=== PATIENT | male | born 1995 | race Caucasian/White ===

== ENCOUNTER 2025-01-07 09:42 | Inpatient (IN) | payer OTHER, SELFPAY ==
[2025-01-04 20:46] VITALS: BP 165/111
[2025-01-04 21:00] VITALS: BP 143/93
[2025-01-04 21:08] LABS: Hematocrit 38.8 % (39.0-52.0); Hemoglobin 13.6 g/dL (13.0-18.0); Mean Corp Hgb Conc. 35.1 g/dL (33.0-37.0); Mean Corpuscular Volume 86.4 fL (80.0-94.0); Platelet Count 149 10^3/uL (130-400); Red Cell Dist. Width 13.4 % (11.5-14.5)
[2025-01-04 21:26] LABS: Nucleated Red Blood Cells % 0 % (-)
[2025-01-04 21:31] LABS: ALT (SGPT) 316 U/L (0-50); AST (SGOT) 398 U/L (17-59); Albumin 4.9 g/dl (3.5-5.0); Alkaline Phosphatase 82 U/L (38-126); Blood Urea Nitrogen 7 mg/dl (9-20); Calcium 8.3 mg/dl (8.4-10.2); Carbon Dioxide 28 mmol/L (22-30); Chloride 96 mmol/L (98-107); Glucose 103 mg/dl (70-99); Lipase 434 U/L (23-300); Potassium 3.7 mmol/L (3.5-5.1); Sodium 141 mmol/L (135-145); Total Protein 7.7 g/dl (6.3-8.2); eGFR > 60.00
[2025-01-04 22:00] VITALS: BP 129/86
[2025-01-04] MEDS: THERAGRAN 1 TABLET PO (22:11)
[2025-01-04] MEDS: VITAMIN B1 100 MG PO (22:12)
--- NOTE | 2025-01-04 23:04 | ED.GENMED ---
History of Present Illness
General
Chief Complaint: Alcohol Problem
Source: patient and family
Exam Limitations: none
Time Seen by Provider: 01/04/25 20:54
Nursing documentation reviewed up to this point in time: agreed with
History of Present Illness
History of Present Illness:
29-year-old male daily drinker for over a decade presenting to the emergency department via EMS after his mother called EMS with concerns that he was severely intoxicated and unresponsive. According to EMS he was responsive at time of their arrival
he was cooperative. He did seem somewhat inebriated by description of EMS. He does admit to drinking 1/5 of whiskey daily and claims that he has been drinking slightly more over the past few days up to 2/day. He is not seeking any treatment at
this time no plans of harming himself or others.
Review of Systems
Review of Systems
Allergies reviewed?: Yes
All Other Systems: ROS reviewed and negative except as documented in HPI and ROS
Phy Exam
Physical Exam
Physical Exam:
GENERAL: Alert , in no apparent distress
EYE: pupils equal and reactive
NECK: Supple, no significant adenopathy.
ENT: o/p clr, mmm.
CARDIAC: Regular rate and rhythm .
LUNGS: Clear breath sounds bilaterally, no acute respiratory distress, no wheezes/rales/rhonchi
ABDOMEN: Soft, without focal tenderness, no r/g, no cvat
NEUROLOGICAL: Alert and oriented, no focal neuro deficits
SKIN: Warm and dry, skin intact.
MUSCULOSKELETAL: No edema, well perfused.
PSYCH: Normal and appropriate interaction.
Scores
Withdrawal Assessment of Alcohol
Withdrawal Assessment Completed?: No
Course
Orders/Labs/Results
Orders:
Orders
01/04/25 20:52
Alcohol Urgent
Complete Blood Count/With Diff Urgent
Comprehensive Metabolic Panel Urgent
Lipase Urgent
01/04/25 21:25
Multivitamin [Theragran] 1 tablet PO NOW STA
Thiamine HCl [Vitamin B1] 100 mg PO NOW STA
01/04/25 21:56
CT Head W/o Iv Contrast Urgent
Comment:
Reason For Exam: ams alcoholic
Urinalysis Reflex To Culture Urgent
Date Specimen was Collected: 01/05/25
Time Specimen was Collected: 01:15
01/05/25 00:15
0.9% Sodium Chloride 1000 ml [Nss] 1,000 ml IV BOLUS
Ondansetron Injectable [Zofran] 4 mg IV NOW STA
01/05/25 00:35
Chest [CR Chest - 2 Views ] Urgent
Comment:
Reason For Exam: low pulse ox
01/05/25 01:18
Urine Microscopic Reflex Cult Urgent
01/05/25 02:26
Lorazepam [Ativan] 1 mg PO NOW STA
01/05/25 03:36
Admit/Transfer Patient As Directed
Co-Sign Provider:
Level of Care: Observation services
Assign to:: Medical/Surgical
Physician / Group: Dalia
Diagnosis: alcohol withdrawal
PRN Pain Medication Management As Directed
May give lesser potent ordered pain med per pt: Yes
preference::
Protocol:: Medication orders for pain may be administered in a
manner that supports deferring to patient preference
when the pt is:
- Requesting an ordered lesser potent pain medication.
Least to most potent pain medications are defined
as: acetaminophen < NSAID < tramadol < opioids
(morphine, oxycodone, hydromorphone).
- Requesting a lesser dose of the same medication IF
ORDERED.
- Requesting a less intrusive route of administration
if both routes are prescribed by the provider (PO <
IV).
01/05/25 Breakfast
Regular
At Your Request: Full Participation
01/05/25 07:51
0.9% Sodium Chloride [Nss (Preservative Free)] See Protocol IV PRN PRN
FOLic ACID [Folvite] 1 mg 0.9% Sodium Chloride 50 ml [Nss] 50 ml IV DAILYPRN
Lorazepam [Ativan] 1 mg PO Q2HPRN PRN
Ondansetron Injectable [Zofran] 4 mg IV Q6HPRN PRN
01/05/25 07:51
DIETARY IP CONSULT Routine
Reason for Consult: Nutrition support, possible refeeding guidelines
MSAS SCORE As Directed
MSAS Score 0-4: Repeat MSAS every 2 hours until 0-4 for three consecutive assessments, then every 4 hours x 48
hours.
MSAS Score 5-7: For MILD withdrawl symptoms. Repeat MSAS and RASS every 2 hours
MSAS Score 8-11: For MODERATE withdrawal symptoms. Repeat MSAS and RASS every 1 hour. Consider ICU or IMU
level of care.
MSAS Score > 11: For SEVERE withdrawal symptoms. Repeat MSAS and RASS every 1 hour. Notify provider, consider
ICU level of care.
MSAS Additional Instructions: If no improvement or no decrease in score from severe to moderate within 12
hours, consult psychiatry
MSAS Notify Provider: Notify provider if patient requires more than 10 mg of Lorazepam in eight hour period.
Sequential Compression Device [Pneumatic Compression Sleeves] As Directed
Type: Knee high
DX Deep Vein Thrombosis Video Routine
01/05/25 08:00
FOLic ACID [Folvite] 1 mg PO DAILY
Thiamine Injection 200 mg IV Q8
01/05/25 08:27
Lorazepam [Ativan] 1 mg PO Q1HPRN PRN
01/05/25 08:28
Lorazepam [Ativan] 2 mg PO Q1HPRN PRN
01/05/25 12:54
Urinalysis Routine
Date Specimen was Collected: 01/05/25
Time Specimen was Collected: 12:48
Urine Drug Abuse Screen Routine
Date Specimen was Collected: 01/05/25
Time Specimen was Collected: 12:48
01/05/25 16:00
Phenobarbital Sodium [Phenobarbital] 97.5 mg IV TID
01/06/25 06:00
Magnesium IN AM
Phosphorus IN AM
Vitamin B12 IN AM
01/07/25 16:00
Phenobarbital [Luminal] 64.8 mg PO TID
01/08/25 08:00
Thiamine HCl [Vitamin B1] 100 mg PO BID
01/09/25 16:00
Phenobarbital [Luminal] 32.4 mg PO TID
Abnormal Lab Results
01/04/25 01/05/25
20:52 01:18
WBC 4.0 L 10^3/uL
(4.8-10.8)
RBC 4.49 L 10^6/uL
(4.70-6.10)
Hct 38.8 L %
(39.0-52.0)
Absolute Neuts (auto) 0.9 L* 10^3/uL
(1.4-6.5)
Immature Gran % 0.8 H %
(0-0.5)
Neutrophils % 21.4 L %
(42.2-75.2)
Lymphocytes % 65.4 H %
(20.5-51.1)
Monocytes % 10.4 H %
(1.7-9.3)
Chloride 96 L mmol/L
(98-107)
BUN 7 L mg/dl
(9-20)
Creatinine 0.6 L mg/dL
(0.7-1.3)
Glucose 103 H mg/dl
(70-99)
Calcium 8.3 L mg/dl
(8.4-10.2)
AST 398 H U/L
(17-59)
ALT 316 H U/L
(0-50)
Lipase 434 H U/L
(23-300)
Urine Ketones 1+ A
(Negative)
Urine Bacteria (Reflex) Few A
(Negative)
Urine Albumin (Reflex) 3+ A
(Neg - Trace)
Alcohol, Quantitative > 600 H* mg/dl
01/04/25 20:52
01/04/25 20:52
Vital Signs
Initial and Last Documented VS:
Initial Vital Signs
Temp
98.2 F
01/04/25 20:41
Last Documented Vital Signs
Temp Pulse Resp BP Pulse Ox
98.1 F 104 16 120/87 96
01/05/25 15:46 01/05/25 15:46 01/05/25 15:46 01/05/25 15:46 01/05/25 15:46
MDM/Problems Addressed
MDM/Problems Addressed:
29-year-old male presenting to the emergency department today. Patient admits to drinking at least 1/5 of whiskey daily. Has been drinking for over a decade. Has had DTs in the past denies any seizures in the past. He is not seeking any
treatment at this point denies any thoughts of harming himself specifically. On arrival hypertensive and tachycardic was given fluids Zofran with improvement of blood pressure and heart rate improving to the 90s. Patient not in any significant
withdrawal during ER stay. Liver function test were elevated and was specifically discussed with the patient.
0245: Patient was reassessed at this point he he is seeking inpatient detox. He claims that he has had no success with outpatient treatments at this point. He claims that symptoms were too severe as outpatient in the past. He feels it is unsafe
to attempt outpatient detox at this point plan to admit for monitoring.
*Pulse Oximetry
SaO2: 97
Patient hypoxic: no (96)
*Critical Care Note
Total Time (30-74mins, 75-104mins- exclusive of procedures): Not Applicable
ED Attending Note
-
Portions of this chart may have been created with voice recognition software.� Occasional wrong word or��sound alike� substitutions may have occurred due to the inherent limitations of voice recognition software.
Discharge Plan
Departure
Patient Disposition: Admit
Date of Disposition: 01/05/25
Time of Disposition: 02:55
Admit to: Telemetry
Admit to doctor: Dalia
Presentation/result/management discussed w/ accepting MD/DO: Hospitalist
Patient with high blood pressure during this ER visit?: No
Condition: Good
Covid-19: Not Applicable
Discharge Problem:
Alcohol abuse
Interventions
Interventions:
*Risk Screen - Suicide Last Done: 01/04/25 23:28
*General Assessment Last Done: 01/05/25 01:00
*ED COVID-19 Vaccine History Last Done: 01/05/25 09:07
ED- Neurological Assessment Last Done: 01/04/25 21:00
ED-Psychological Assessment Last Done: 01/04/25 21:00
Discharge Date and Time
Discharge Date/Time: 01/05/25 07:25
[2025-01-04 23:14] VITALS: BP 138/95
[2025-01-04 23:30] VITALS: BP 131/84
[2025-01-05] VITALS (19 sets, daily range): BP systolic 103–140; BP diastolic 56–98; BMI 26.5
[2025-01-05] MEDS: NSS 1000 IV (00:20)
[2025-01-05] MEDS: ZOFRAN 4 MG IV ×2 (00:20→08:47)
[2025-01-05 01:25] LABS: Urine Character Clear (Clear)
[2025-01-05 01:38] LABS: Urine Red Blood Cell None Seen /HPF (0-2)
[2025-01-05 01:39] LABS: Urine White Cell 0-2 /HPF (0-5)
[2025-01-05] MEDS: ATIVAN 1 MG PO ×4 (02:33→20:06)
--- NOTE | 2025-01-05 03:07 | HPS.HSE ---
Family Physician
-
Family Physician: * NONE
Chief Complaint
-
Alcohol dependence
History of Present Illness
This is a 29-year-old male with past medical history of alcohol dependence who presents to the emergency department after being found intoxicated by neighbors and brought into the emergency department by EMS. Intermittent department patient was
initially alert and oriented but somewhat somnolent appeared to be in alcoholic stupor. However when he arose fully he endorsed interest in inpatient rehab. He has tried outpatient rehab before and failed. At the time that he was being evaluated
in the ED started having symptoms of withdrawal most notably some tachycardia and visible tremors.
Reports drinking about 250ml of liquor on daily basis. History of withdrawal episodes on multiple occasions but no history of seizures or DT requiring intubation. He has not undergone any inpatient rehab and tells me he is not really interested.
Last drink was between 12 noon and 6 pm yesterday.
In the emergency department initial vital signs were stable, afebrile, pulse 108 blood pressure 110/60. CBC shows mild neutropenia with normal WBCs. Electrolytes were all normal, BUN/creatinine were normal. He does have some elevation in AST to
the 300s and ALT to 300. Lipase was 420.
Chest x-ray was clear. CT of the head showed no acute intracranial process.
Medical History
Past Medical History
Past Medical History: Reports Other (substance use)
Past Surgical History: Reports Tonsilectomy
Social History
Tobacco: Smoker
Alcohol: Daily
Drug: None
Personal: Single
Living: With Family
Family History
Family History: Not pertinent
Allergies / Home Medications
Allergies reflects when Allergies were last updated in [employer]
Home Medications with original date entered in [employer]
Allergy/Medication List:
Allergies
Allergy/AdvReac Type Severity Reaction Status Date / Time
No Known Allergies Allergy Unverified 01/04/25 21:40
Takes no home medications
Review of Systems
-
Constitutional: Reports No Symptoms
EENT: Reports No Symptoms
Respiratory: Reports No Symptoms
Cardiac: Reports No Symptoms
Abdomen/GI: Reports No Symptoms
: Reports No Symptoms
Musculoskeletal: Reports No Symptoms
Skin: Reports No Symptoms
Neurological: Reports No Symptoms
Endocrine: Reports No Symptoms
Hematologic/Lymphatic: Reports No Symptoms
Psych: Reports No Symptoms
Physical Exam
Vital Signs
Vital Signs
Temp Pulse Resp BP Pulse Ox
98.2 F 108 12 110/60 98
01/04/25 20:41 01/05/25 02:15 01/05/25 02:15 01/05/25 02:00 01/05/25 02:15
Physical Exam
General: Well Developed, Well Nourished and No Apparent Distress
HEENT: NormoCephalic, Moist mucous membranes and Atraumatic
Respiratory: Clear
Cardiac: S1/S2 and Regular Rhythm; No Murmur or Rub
GI: Soft, Non Tender, Non Distended and Normal Bowel Sounds; No Organomegaly
Rectal: Deferred by Provider
Musculoskeletal: No Clubbing, No Cyanosis and No Edema
Skin: No Rash
Neuro: AO x 3 and Nonfocal/grossly intact
Psych: Calm
Laboratory Results
-
01/04/25 20:52
01/04/25 20:52
Laboratory Results
Total Bilirubin 0.9 mg/dl (0.2-1.3) 01/04/25 20:52
AST 398 U/L (17-59) H 01/04/25 20:52
ALT 316 U/L (0-50) H 01/04/25 20:52
Alkaline Phosphatase 82 U/L (38-126) 01/04/25 20:52
Lipase 434 U/L (23-300) H 01/04/25 20:52
Data Reviewed
-
Diagnostic Radiology: Image Personally Visualized and interpreted
CT Scan: Report Reviewed by me
Lab Data: Labs Reviewed by me
Old Records: Reviewed
Impression/Plan
-
IMPRESSION:
29 y.o male with hx of etoh dependence brought in by ems after family found him stupurous with bottles of alcohol by bedside. Awake, alert and lucid. Labs c/w chronic etoh use with AST/ALT in the 300s and lipase of 400. CIWA = 4. Referred for
admission because he told ED doc he was willing to consider inpatient rehab but he only endorsed willing to stay overnight for me. Endorse h/o depression. Denies SI/SA now or in the past.
PLAN:
ETOH withdrawal - moderate to high risk for prior DT history and last known etoh drink < 48 hours with etoh level still > 600
- admit to med/surg
- high risk withdrawal protocol with phenobarbital taper
- thiamine/folate/mvi
- b12 levels in am
- case management/Bcares consulted from ED
DVT PPX - SCDs
Code status - Full Code
[2025-01-05] MEDS: PHENOBARBITAL 104 MG IV (05:12)
[2025-01-05 07:26] LABS: Hematocrit 31.4 % (39.0-52.0); Hemoglobin 10.7 g/dL (13.0-18.0); Mean Corp Hgb Conc. 34.1 g/dL (33.0-37.0); Mean Corpuscular Volume 89.2 fL (80.0-94.0); Nucleated Red Blood Cells % 0 % (-); Red Cell Dist. Width 13.6 % (11.5-14.5)
[2025-01-05 07:39] LABS: Platelet Count 98 10^3/uL (130-400)
[2025-01-05 07:46] LABS: ALT (SGPT) 219 U/L (0-50); AST (SGOT) 222 U/L (17-59); Albumin 4.0 g/dl (3.5-5.0); Alkaline Phosphatase 50 U/L (38-126); Blood Urea Nitrogen 6 mg/dl (9-20); Calcium 6.9 mg/dl (8.4-10.2); Carbon Dioxide 28 mmol/L (22-30); Chloride 96 mmol/L (98-107); Glucose 176 mg/dl (70-99); Lipase 438 U/L (23-300); Magnesium 1.2 mg/dl (1.6-2.3); Potassium 3.2 mmol/L (3.5-5.1); Sodium 136 mmol/L (135-145); Total Protein 6.2 g/dl (6.3-8.2); eGFR > 60.00
--- NOTE | 2025-01-05 07:55 | EDRN ---
Notified by community organization aide of critical value of calcium from morning labs. Sent TT to hospitalist Dr. Gordon about the critical value change and the patient's ETOH level being greater than 600 at 2100hrs. Added ETOH onto morning labs. At 0700 patient's
MSAS was 2 with HR being 114. Informed hospitalist of patient's past of DTs as well.
[2025-01-05] MEDS: FOLVITE 1 MG PO (08:47)
[2025-01-05] MEDS: THIAMINE INJECTION 200 MG IV ×3 (08:47→23:12)
[2025-01-05] MEDS: KCL ELIXIR 40 MEQ PO (08:48)
[2025-01-05] MEDS: MAGNESIUM SULFATE 100 IV (08:48)
[2025-01-05] MEDS: PROTONIX 40 MG PO (09:47)
[2025-01-05 10:09] LABS: Iron 96 ug/dl (49-181)
[2025-01-05 10:20] LABS: Total Iron Binding Capacity 205 ug/dl (261-462)
[2025-01-05 10:26] LABS: Vitamin D, 25-OH*** < 12.8 ng/mL (30-80)
[2025-01-05 10:44] LABS: Ferritin 706.0 ng/ml (17.9-464.0)
[2025-01-05] MEDS: DRISDOL (VITAMIN D2) 50000 UNITS PO (10:50)
[2025-01-05 10:59] LABS: Vitamin B12 877 pg/ml (239-931)
--- NOTE | 2025-01-05 12:22 | W.PN.HOSP.TC ---
Addendum entered and electronically signed by Holland Gordon MD 01/05/25 15:14:
Seen and examined the patient dependently. Agree with the plan put forth by resident , see changes in my documentation
29-year-old male was intoxicated and neighbors brought to the ER. He drinks to 50 mL of liquor on a daily basis he has not been in to an inpatient rehab before.
Chest [id number]-reviewed by me
Head CT-no acute changes
Mild tremors noted
Cardiovascular system S1-S2 appreciated
Chest clear to auscultation
Abdomen soft and nontender
Neuroexam mild tremors otherwise awake alert oriented
# Alcohol abuse, intoxication-alcohol level was more than 600 on admission
Heavy alcohol use
MSAS protocol, benzos
Started on phenobarbital taper
Replace thiamine
# Mild pancytopenia-likely secondary to alcohol effects on bone marrow
# Hypokalemia/hypomagnesemia-replace
# Hypocalcemia-vitamin D deficiency-replace
# Mildly elevated lipase-watch. No abdominal pain or tenderness
# Active smoker-cessation counseling
# DVT prophylaxis-SCDs
# Full code
Discussed with father at bedside
Detailed discussion with the patient regarding effects of alcohol on his body, leading to cirrhosis, liver failure. Offered inpatient alcohol rehab. Father also stated that patient needs it however he is not really agreeable. Agreeable to talk to
B cares. If he does not stop alcohol his prognosis is not good.
Part of this note was created using voice recognition system. Occasional wrong word or��sound alike� substitutions may have inadvertently occurred due to the inherent limitations of voice recognition software. If noted kindly bring it to my
attention for correction.
Original Note:
Today's Communication/Plan
-
Phenobarb taper
B-cares discussion
Replete electrolytes
PPI and tums
Upgrade to IMU if MSAS scores increase significantly
Assessment / Plan
Assessment / Plan
29-year-old male presented to the ED for alcohol intoxication.
Alcohol intoxication/withdrawal
-- Alcohol level greater than 600 in ED
-- States he drinks on average 200 mL of rum a day since age 12
-- MSAS
-- CIWA 11 when I examined him
-- Phenobarb taper
-- B-cares contacted
-- Currently not interested in psychiatry consult
-- Antiemetics and PPI for nausea
-- Currently on telemetry - admit to IMU if MSAS scores increase
Transaminitis
--In setting of alcohol use disorder. Denies any abdominal tenderness/right upper quadrant pain
--Monitor
Elevated lipase 438
--Denies any midepigastric tenderness or pain
--Not greater than 3 times the upper limit of normal making pancreatitis highly unlikely
Hypokalemia
--Replete
Hypocalcemia
-- Asymptomatic, monitor
-- Tums for nausea may help
Hypomagnesemia
-- Replete
Anemia
Thrombocytopenia
-- Likely dilutional
-- Iron stores and B12 adequate
Leukopenia
Neutropenia
-- Neutrophil 0.9 upon arrival -improved to 2.2 today
-- Monitor CBC
-- No history of hematologic illness
Vitamin D deficiency
-- Start vitamin D supplementation
History of depression
-- Diagnosed, but not treated in the past
-- Not interested in seeing psychiatry now
-- Denies any thoughts of harming himself or others
Full code
DVT SCDs
Anticipated Discharge: 24 - 48 hours
Subjective/Interval History
-
Date of Service: January 05, 2025
Feeling mildly anxious, mildly tremulous. States he does he has a history of depression, however is not interested in seeing psychiatry at this time. Interested in talking to be curious but not interested in inpatient rehab at this moment.
Objective Data
-
Labs:
Laboratory Results
01/05/25
07:02
WBC 3.5 L
Hgb 10.7 L D
Hct 31.4 L
Plt Count 98 L D
Sodium 136
Potassium 3.2 L
Chloride 96 L
Carbon Dioxide 28
BUN 6 L
Creatinine 0.6 L
Glucose 176 H
Calcium 6.9 L*
Total Bilirubin 0.6
AST 222 H
ALT 219 H
Alkaline Phosphatase 50
Vital Signs:
Vital Signs
Temp Pulse Resp BP Pulse Ox
97.8 F 112 16 135/85 97
01/05/25 11:32 01/05/25 11:32 01/05/25 11:32 01/05/25 11:32 01/05/25 11:32
Review of Systems
-
History Source: Patient
EENT: Reports No Symptoms Reported
Respiratory: Reports No Symptoms
Cardiac: Reports No Symptoms
Abdomen/GI: Reports Abdominal Pain, Nausea, Vomiting and Other (No melena, no hematochezia, no hematemesis)
Genitourinary: Reports No Symptoms
Neuro: Reports Tremors
Physical Exam
-
General: Comfortable
HEENT: Normocephalic
Respiratory: Clear to Auscultation
Cardiac: Regular Rhythm, S1/S2 and Tachycardic
GI: Soft, Nontender, Nondistended and Normal Bowel Sounds
Musculoskeletal: No Cyanosis and No Edema
Skin: Warm and Dry
Neuro: AO x 3 and Tremors
Psych: Calm
[2025-01-05 13:17] LABS: Urine Character Clear (Clear)
[2025-01-05 13:38] LABS: Urine Red Blood Cell 0-2 /HPF (0-2); Urine Squamous Cell 0-2 /LPF (Few); Urine White Cell 0-2 /HPF (0-5)
[2025-01-05 14:11] LABS: Folate 7.2 ng/ml (2.76-20)
--- NOTE | 2025-01-05 15:52 | CM ---
Met with patient to obtain information for assessment. Patient stated that he lives with his mother and father in a single two story home. He did not relay that he had any steps. He described himself as independent with his ADLs, personal care,
dressing and bathing. 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 He has no DME. No VN. He has not been to a SNF.
Patient has a prescription plan and uses, [facility] in [place] for all of his medications.
His PCP is, not listed.
Patient agreeable to [facility] referral. Placed a call to [facility] and spoke with Josef. Provided patient information and Josef stated that Jason will f/u with patient tomorrow.
Obs form provided
Plan: Case management will continue to follow and assist with discharge planning. [facility]
[2025-01-05] MEDS: PHENOBARBITAL 97.5 MG IV ×2 (16:23→22:00)
[2025-01-06 03:25] VITALS: BP 128/77
--- NOTE | 2025-01-06 07:08 | PTCARENOTE ---
Patient HR up to the 150's-170's with ambulation to the bathroom. Asymptomatic. No c/o chest pain or heart palpitations. Once patient lays/sits back down in bed, HR settles to the 80's-90's. CLIENT REPORTING ASSOCIATE aware. No new orders. Call case is within reach.
[2025-01-06 07:33] VITALS: BP 132/92
[2025-01-06] MEDS: VITAMIN D3 (cholecalciferol) 50 MCG PO (07:43)
[2025-01-06] MEDS: PROTONIX 40 MG PO (07:43)
[2025-01-06] MEDS: THIAMINE INJECTION 200 MG IV ×3 (07:43→23:04)
[2025-01-06] MEDS: PHENOBARBITAL 97.5 MG IV ×3 (07:43→22:08)
[2025-01-06] MEDS: FOLVITE 1 MG PO (07:44)
[2025-01-06 08:51] LABS: ALT (SGPT) 160 U/L (0-50); AST (SGOT) 129 U/L (17-59); Albumin 4.4 g/dl (3.5-5.0); Alkaline Phosphatase 58 U/L (38-126); Blood Urea Nitrogen 5 mg/dl (9-20); Calcium 8.6 mg/dl (8.4-10.2); Carbon Dioxide 28 mmol/L (22-30); Chloride 94 mmol/L (98-107); Estimated Creatinine Clearance > 125 ml/min; Glucose 96 mg/dl (70-99); Magnesium 1.9 mg/dl (1.6-2.3); Potassium 3.9 mmol/L (3.5-5.1); Sodium 128 mmol/L (135-145); Total Protein 6.9 g/dl (6.3-8.2); eGFR > 60.00
[2025-01-06 09:18] LABS: Hematocrit 33.4 % (39.0-52.0); Hemoglobin 11.7 g/dL (13.0-18.0); Mean Corp Hgb Conc. 35.0 g/dL (33.0-37.0); Mean Corpuscular Volume 87.9 fL (80.0-94.0); Platelet Count 114 10^3/uL (130-400); Red Cell Dist. Width 13.1 % (11.5-14.5)
[2025-01-06 09:29] LABS: Vitamin B12 872 pg/ml (239-931)
[2025-01-06 11:30] VITALS: BP 134/94
--- NOTE | 2025-01-06 12:20 | W.PN.UPDATE ---
Update Note
Progress Note Update
I saw and evaluated the patient. I reviewed the resident�s note and agree with findings and plan as documented in the resident�s note.
Denies anxiety, diaphoresis, hallucinations. Reports she still has tremor.
Gen: NAD, AAOx3.
Eyes: EOMI, PERRLA, no scleral icterus.
Neck: supple.
CV: RRR, +S1/S2, no m/r/g.
Resp: CTAB, no rales, wheezes, or rhonchi.
Abd: +BS, soft, NT, ND
Skin: No rashes.
Neuro: CN 2-12 intact, non-focal. Mild resting tremor.
Psych: Normal mood and affect.
CT brain: No acute intracranial abnormality noted.
CXR: No acute cardiopulmonary process.
Acute alcohol withdrawal due to alcohol abuse disorder:
-presented with intoxication, alcohol level was more than 600 on admission
-cont MSAS protocol (thiamine IV/folate/PRN benzo)
-cont phenobarbital taper
-mild alcoholic hepatitis, transaminases improving
-pancytopenia likely due to bone marrow suppression from alcohol abuse
Other problems:
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 Placed on fluid restriction.
Hypokalemia, resolved
Hypomagnesemia, resolved
Hypocalcemia, resolved
Tobacco abuse disorder: Counseled on smoking cessation
FULL/SCDs
--- NOTE | 2025-01-06 12:31 | W.PN.HOSP.TC ---
Today's Communication/Plan
-
Discussed the need for inpatient rehab
Assessment / Plan
Assessment / Plan
29-year-old male presented to the ED for alcohol intoxication. Drinks about 250ml of liquor on daily basis. Last drink was between 12 noon and 6pm 01/04/2025. Day > 48hrs/Day 2
#Alcohol intoxication/withdrawal
-- Alcohol at presentation > 600, now 307
-- MSAS now 3
-- Phenobarb taper now 97.5
-- Fu with CM for in patient rehab
-- Antiemetics and PPI for nausea
#Transaminitis
--In setting of alcohol use disorder. Denies any abdominal tenderness/right upper quadrant pain
--Monitor
#Elevated lipase 438
--Denies any midepigastric tenderness or pain
--Not greater than 3 times the upper limit of normal making pancreatitis highly unlikely
--Rpeat Lipase, LFT outpatient
#Hypokalemia
--Given single dose of Kcl
--Now 3.9 Replete
#Hypocalcemia
-- Asymptomatic,
-- Was given tums for nausea
--Now normal
#Hypomagnesemia
-- Replete
#Anemia
#Thrombocytopenia
-- Likely dilutional
-- Iron stores and B12 adequate
#Leukopenia
#Neutropenia
-- Neutrophil 0.9 upon arrival -improved to 2.2 today
-- Monitor CBC
-- No history of hematologic illness
#Vitamin D deficiency
-- Started vitamin D supplementation
Full code
DVT SCDs
Anticipated Discharge: 24 - 48 hours
Subjective/Interval History
-
Date of Service: January 06, 2025
No new complains today
Doing better
Objective Data
-
Labs:
Laboratory Results
01/06/25 01/06/25
08:02 08:04
WBC 2.7 L
Hgb 11.7 L
Hct 33.4 L
Plt Count 114 L
Sodium 128 L D
Potassium 3.9
Chloride 94 L
Carbon Dioxide 28
BUN 5 L
Creatinine 0.5 L
Glucose 96
Calcium 8.6 D
Total Bilirubin 1.3
AST 129 H
ALT 160 H
Alkaline Phosphatase 58
Vital Signs:
Vital Signs
Temp Pulse Resp BP Pulse Ox
99.2 F 88 18 134/94 97
01/06/25 11:30 01/06/25 11:30 01/06/25 11:30 01/06/25 11:30 01/06/25 11:30
I&O
01/05/25 01/06/25 01/07/25
06:59 06:59 06:59
Intake Total 2280 / 2280
Balance 2280 / 2280
Review of Systems
-
History Source: Patient and Family (Parents at the bedside)
EENT: Reports No Symptoms Reported
Respiratory: Reports No Symptoms
Cardiac: Reports No Symptoms
Abdomen/GI: Reports Nausea, Vomiting and Other (No melena, no hematochezia, no hematemesis)
Genitourinary: Reports No Symptoms
Neuro: Reports Tremors
Physical Exam
-
General: Comfortable
HEENT: Normocephalic
Respiratory: Clear to Auscultation
Cardiac: Regular Rhythm and S1/S2
GI: Soft, Nontender, Nondistended and Normal Bowel Sounds
Musculoskeletal: No Cyanosis and No Edema
Skin: Warm and Dry
Neuro: AO x 3 and Tremors
Psych: Calm
--- NOTE | 2025-01-06 12:34 | CM ---
CM reviewed update from MELINA Gomez, provided patient with resources. CM will continue to follow for all discharge planning needs.
Plan; home no needs, resources provided from MELINA
[2025-01-06 15:49] VITALS: BP 132/95
[2025-01-06 19:00] VITALS: BP 126/86
[2025-01-06 23:00] VITALS: BP 139/91
[2025-01-07 03:00] VITALS: BP 134/93
[2025-01-07 07:35] VITALS: BP 124/86
[2025-01-07 08:28] LABS: Hematocrit 34.3 % (39.0-52.0); Hemoglobin 11.9 g/dL (13.0-18.0); Mean Corp Hgb Conc. 34.7 g/dL (33.0-37.0); Mean Corpuscular Volume 88.4 fL (80.0-94.0); Platelet Count 107 10^3/uL (130-400); Red Cell Dist. Width 13.2 % (11.5-14.5)
[2025-01-07 08:44] LABS: ALT (SGPT) 156 U/L (0-50); AST (SGOT) 171 U/L (17-59); Albumin 4.1 g/dl (3.5-5.0); Alkaline Phosphatase 56 U/L (38-126); Blood Urea Nitrogen 4 mg/dl (9-20); Calcium 9.2 mg/dl (8.4-10.2); Carbon Dioxide 27 mmol/L (22-30); Chloride 100 mmol/L (98-107); Estimated Creatinine Clearance > 125 ml/min; Glucose 104 mg/dl (70-99); Potassium 3.4 mmol/L (3.5-5.1); Sodium 132 mmol/L (135-145); Total Protein 6.7 g/dl (6.3-8.2); eGFR > 60.00
[2025-01-07] MEDS: VITAMIN D3 (cholecalciferol) 50 MCG PO (09:17)
[2025-01-07] MEDS: THIAMINE INJECTION 200 MG IV (09:17)
[2025-01-07] MEDS: PROTONIX 40 MG PO (09:17)
[2025-01-07] MEDS: FOLVITE 1 MG PO (09:17)
[2025-01-07] MEDS: PHENOBARBITAL 97.5 MG IV (09:17)
--- NOTE | 2025-01-07 09:43 | W.PN.UPDATE ---
Addendum entered and electronically signed by Hilario Torrez MD 01/07/25 12:33:
Total time spent on d/c = 31 min. This included today's physical exam, progress note, review of laboratory and diagnostic data, preparation of discharge documents and prescriptions, and discussions about the pt's hospital course and discharge plan
with the patient and other medical record librarian involved in the patient's care.
Original Note:
Update Note
Progress Note Update
I saw and evaluated the patient. I reviewed the resident�s note and agree with findings and plan as documented in the resident�s note.
Denies anxiety, diaphoresis, hallucinations. Reports resting tremor is very mild.
Gen: NAD, AAOx3.
Eyes: EOMI, PERRLA, no scleral icterus.
Neck: supple.
CV: remains RRR, +S1/S2, no m/r/g.
Resp: remains CTAB, no rales, wheezes, or rhonchi.
Abd: +BS, soft, NT, ND
Skin: No rashes.
Neuro: CN 2-12 intact, non-focal. Very mild resting tremor.
Psych: Normal mood and affect.
CT brain: No acute intracranial abnormality noted.
CXR: No acute cardiopulmonary process.
Acute alcohol withdrawal due to alcohol abuse disorder:
-presented with intoxication, alcohol level was more than 600 on admission
-cont MSAS protocol (thiamine IV/folate/PRN benzo)
-cont phenobarbital taper until discharge
-mild alcoholic hepatitis, transaminases stable
-pancytopenia likely due to bone marrow suppression from alcohol abuse
Other problems:
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 Placed on fluid restriction.
Hypokalemia, replete
Hypomagnesemia, resolved
Hypocalcemia, resolved
Tobacco abuse disorder: Counseled on smoking cessation
FULL/SCDs
Medically cleared for d/c. Case management aware.
[2025-01-07 10:14] LABS: Magnesium 1.6 mg/dl (1.6-2.3)
[2025-01-07 11:08] VITALS: BP 139/96
--- NOTE | 2025-01-07 11:18 | W.PN.HOSP.TC ---
Today's Communication/Plan
-
Need to go into rehab for AUD.
Assessment / Plan
Assessment / Plan
29-year-old male presented to the ED for alcohol intoxication. Drinks about 250ml of liquor on daily basis. Last drink was between 12 noon and 6pm 01/04/2025. Day > 48hrs/Day 2
#Alcohol intoxication/withdrawal
-- Alcohol at presentation > 600, now 307
-- MSAS now 3
-- Phenobarb taper IV 97.5 completed this morning
#Transaminitis
--In setting of alcohol use disorder.
--Monitor
#Elevated lipase 438
--Denies any midepigastric tenderness or pain
--Not greater than 3 times the upper limit of normal making pancreatitis highly unlikely
--Repeat Lipase, LFT outpatient
#Hypokalemia
--Given single dose of Kcl
--Now 3.9 Replete
#Hypocalcemia
-- Asymptomatic,
-- Was given tums for nausea
--Now normal
#Hypomagnesemia
-- Replete
#Pancytopenia
-- Iron stores and B12 adequate
--Likely due to Alcohol use
-- No history of hematologic illness
--FU with pcp, repeat labs in a week
#Vitamin D deficiency
-- Started vitamin D supplementation
Full code
DVT SCDs
Dispo;Home
Anticipated Discharge: Today
Subjective/Interval History
-
Date of Service: January 07, 2025
Patient met lying comfortably in bed.
No new complaints, tremors subsided
Objective Data
-
Labs:
Laboratory Results
01/07/25
07:07
WBC 2.7 L
Hgb 11.9 L
Hct 34.3 L
Plt Count 107 L
Sodium 132 L
Potassium 3.4 L
Chloride 100
Carbon Dioxide 27
BUN 4 L
Creatinine 0.5 L
Glucose 104 H
Calcium 9.2
Total Bilirubin 1.0
AST 171 H
ALT 156 H
Alkaline Phosphatase 56
Vital Signs:
Vital Signs
Temp Pulse Resp BP Pulse Ox
98.8 F 88 18 139/96 99
01/07/25 11:08 01/07/25 11:08 01/07/25 11:08 01/07/25 11:08 01/07/25 11:08
I&O
01/06/25 01/07/25 01/08/25
06:59 06:59 06:59
Intake Total 2280 / 2280 820 / 820
Balance 2280 / 2280 820 / 820
Review of Systems
-
History Source: Patient
EENT: Reports No Symptoms Reported
Respiratory: Reports No Symptoms
Cardiac: Reports No Symptoms
Abdomen/GI: Reports No Symptoms
Genitourinary: Reports No Symptoms
Musculoskeletal: Reports No Symptoms
Skin: Reports No Symptoms
Neuro: Reports Tremors and Other (No seizures no hallucination)
Physical Exam
-
General: Well Developed, Well Nourished and No Apparent Distress
HEENT: Moist Mucous Membranes
Respiratory: Clear to Auscultation
Cardiac: Regular Rhythm and S1/S2
GI: Soft, Nontender and Nondistended
Musculoskeletal: No Cyanosis and No Edema
Skin: Warm and Dry
Neuro: Awake, Alert and Oriented
Psych: Calm
Data Reviewed
-
Labs: Labs Reviewed by me, Discussed with Physician and Discussed with Patient
--- NOTE | 2025-01-07 14:30 | W.DCSUMMARY ---
Discharge Summary
Discharge Data
Date of Admission: 01/07/25
Date of Discharge: 01/07/25
-
Pending Results: No
Hospital Course
Discharging Physician : Vickie Sifuentes MD, Hilario Torrez MD
Disposition : Home
Primary care physician :
Principal Discharge diagnosis : Alcohol use disorder with withdrawal
Primary diagnosis:
Alcohol withdrawal/intoxication
Transaminitis
Pancytopenia
Hypokalemia
Hypocalcemia
Hypomagnesemia
Vitamin D deficiency
Secondary diagnoses:
Depression
Tobacco use disorder
Hospital course:
29-year-old male presented to to the ER via EMS after being found intoxicated by neighbors. Patient endorsed drinking 250ml hard liquor daily. In the ED he started to have symptoms of withdrawal with tachycardia, tremors, nausea and vomiting. He
reported his last drink was on 01/03 afternoon. Chest x-ray and head CT were unremarkable. Alcohol levels found to be greater than 600. LFTs were elevated, mild neutropenia noted and electrolyte imbalances with hypokalemia, hypomagnesemia,
hypocalcemia. He endorsed being interested in possible inpatient rehab. He was started on fluids, electrolyte repletion, a phenobarb taper, MSAS protocol (thiamine IV, folate and PRN benzo) and admitted for further observation. The next day he was
noted to be pancytopenic. B12, folate and iron were all within normal limits. Suspected pancytopenia in setting of bone marrow suppression from chronic EtOH use. Vit D levels were low so he was started on a vit D supplement. Over the course of
his stay his LFTs improved however still elevated.
Today, patient is clinically stable for discharge. He finishes IV phenobarbital taper. He wanted to go home rather than staying and finish his p.o. phenobarb taper. [facility] was consulted and patient plans to follow-up with them. Recommend
supplementation with vitamin D, magnesium, folic acid and thiamine. Recommend follow-up with addiction medicine specialist and therapists with [facility].
Important imaging findings :
CT Head W/o Iv Contrast 12/08/2024
No acute intracranial abnormality noted.
CR Chest 01/06/2020
No acute cardiopulmonary process.
Discharge Plan
-
Patient Disposition: Home (Routine Discharge)
Discharge Diagnosis/Procedures: Alcohol use disorder
Alcohol withdrawal
Transaminitis
Pancytopenia
Hyponatremia
Hypokalemia
Hypomagnesemia
Hypocalcemia
Tobacco use disorder
Depression
Condition: Fair
Diet: Regular
Activity: As tolerated
Driving Restrictions: As prior to admission
Bathing Restrictions: None
Instructions: Alcohol use disorder (DC)
Referrals:
Didier Thomas MD [Non-Admitting Privileges, [facility]]
Referral Note: Alcohol use disorder
Vickie Sifuentes MD, Resident [[facility] Resident Year1, General] - in one week
NONE,* [Family Provider, Internal Medicine]
Additional Discharge Medication Instructions: There are many pharmacologic treatments that can help treat addictions.
[facility] is a great resource for medical treatment and therapy as well. The medical record coder is Dr. Didier Thomas who is an addiction medicine specialist. He also helps treat many mental health conditions that frequently coincide with
use disorders.
Prescriptions:
New
cholecalciferol (vitamin D3) 50 mcg (2,000 unit) Tablet
50 mcg PO DAILY Qty: 30 0RF
magnesium oxide 200 mg magnesium tablet
200 mg PO DAILY Qty: 10 0RF
folic acid 1 mg Tablet
1 mg PO DAILY Qty: 30 0RF
thiamine mononitrate (vit B1) 100 mg Tablet
100 mg PO BID Qty: 30 0RF
Discharge Orders:
Discharge Patient (As Directed); Ordered 01/07/25
Ordered By: Hilario Torrez
Discharge Date and Time
Discharge Date/Time: 01/07/25 14:35
Print Language: BELARUSIAN
== END 2025-01-07 14:35 | disposition home or self-care (01) | DRG 897 ==
LOC: 4 EAST ACU 09:42
PROVIDERS: Physician Assistant; ADMITTING PHYSICIAN Internal Medicine; ATTENDING PHYSICIAN Internal Medicine; EMERGENCY PHYSICIAN Emergency Medicine
DX: F10.239 Alcohol dependence with withdrawal, unspecified (principal); E87.1 Hypo-osmolality and hyponatremia; D61.818 Other pancytopenia; F10.229 Alcohol dependence with intoxication, unspecified; Y90.8 Blood alcohol level of 240 mg/100 ml or more; D70.9 Neutropenia, unspecified; R40.0 Somnolence; F17.200 Nicotine dependence, unspecified, uncomplicated; F32.A Depression, unspecified; E87.6 Hypokalemia; E83.42 Hypomagnesemia; E83.51 Hypocalcemia; K70.10 Alcoholic hepatitis without ascites
CPT/HCPCS: 70450; 71046; 80053; 80306; 80307; 81003; 81015; 82077; 82306; 82607; 82728; 82746; 83540; 83550; 83690; 83735; 84100; 85025; 85027; 93005; 96361; 96374; 99285

== ENCOUNTER 2025-03-11 23:07 | Inpatient (IN) | payer OTHER, SELFPAY ==
[2025-03-11 21:08] VITALS: BP 132/80
[2025-03-11 21:20] LABS: Hematocrit 34.7 % (39.0-52.0); Hemoglobin 11.7 g/dL (13.0-18.0); Mean Corp Hgb Conc. 33.7 g/dL (33.0-37.0); Mean Corpuscular Volume 89.0 fL (80.0-94.0); Nucleated Red Blood Cells % 0 % (-); Platelet Count 106 10^3/uL (130-400); Red Cell Dist. Width 13.8 % (11.5-14.5)
[2025-03-11] MEDS: NSS 1000 IV (21:35)
[2025-03-11 21:37] LABS: INR 0.98; PT 13.3 Sec (11.4-14.6)
[2025-03-11] MEDS: VALIUM INJECTION 5 MG IV (21:37)
[2025-03-11 21:38] LABS: APTT 27.6 Sec (23.4-35.0)
[2025-03-11 21:43] LABS: AST (SGOT) 107 U/L (17-59); Albumin 4.9 g/dl (3.5-5.0); Alkaline Phosphatase 66 U/L (38-126); Blood Urea Nitrogen 10 mg/dl (9-20); Calcium 9.9 mg/dl (8.4-10.2); Carbon Dioxide 27 mmol/L (22-30); Chloride 87 mmol/L (98-107); Glucose 138 mg/dl (70-99); Magnesium 1.2 mg/dl (1.6-2.3); Potassium 3.7 mmol/L (3.5-5.1); Sodium 126 mmol/L (135-145); Total Protein 7.6 g/dl (6.3-8.2); eGFR > 60.00
[2025-03-11 21:53] LABS: ALT (SGPT) 135 U/L (0-50)
[2025-03-11 22:00] VITALS: BP 120/77
--- NOTE | 2025-03-11 22:01 | ED.GENMED ---
History of Present Illness
<Aleksandr Weller PA-C - Last Filed: 03/12/25 00:14>
General
Chief Complaint: Seizure
Source: patient and ambulance crew
Time Seen by Provider: 03/11/25 21:09
History of Present Illness
History of Present Illness:
29-year-old male with past medical history of alcohol abuse presenting to the emergency department with EMS from home where he lives with parents and 2 brothers who witnessed patient have a tonic-clonic seizure lasting approximately 45 seconds and
resolving spontaneously. Patient states he believes this was an alcohol withdrawal seizure despite not having a history of similar as he notes his last drink was 2 days ago and he typically drinks close to a full bottle of whiskey multiple times
per week. Patient endorses feeling tremulous, mild headache, anxious and nausea but no vomiting. He reports that he does have outpatient based therapies including alcohol Anonymous as well as a therapist. Patient has never sought inpatient
treatment in the past.
Past History
<Aleksandr Weller PA-C - Last Filed: 03/12/25 00:14>
Past History
ED Past Medical History: Psychiatric
ED Past Surgical History: Tonsilectomy
Social History
Tobacco: Non-smoker
Alcohol: Chronic alcoholic
Drug: None
Personal: Single
Living: with family
Review of Systems
<Aleksandr Weller PA-C - Last Filed: 03/12/25 00:14>
Review of Systems
All Other Systems: ROS reviewed and negative except as documented in HPI and ROS
Phy Exam
<Aleksandr Weller PA-C - Last Filed: 03/12/25 00:14>
Physical Exam
Physical Exam:
GENERAL: Alert , in no apparent distress
HEAD: Normocephalic atraumatic
EYE: conjunctiva clear
NECK: Supple, no significant adenopathy.
ENT: o/p clr, mmm. Contusions to the right side of the tongue with abrasion noted on the right side laterally but no active bleeding
CARDIAC: borderline tachycardic rate, normal rhythm
LUNGS: Clear breath sounds bilaterally, no acute respiratory distress, no wheezes/rales/rhonchi
NEUROLOGICAL: Alert and oriented, tremors with arms extended
SKIN: Warm and dry, skin intact.
MUSCULOSKELETAL: well perfused.
PSYCH: Normal and appropriate interaction.
Scores
<Aleksandr Weller PA-C - Last Filed: 03/12/25 00:14>
Heart Failure Risk
Heart Failure Risk Score: Not Applicable
Heart Score for Chest Pain Patients
STEMI patient?: Not applicable
Withdrawal Assessment of Alcohol
Withdrawal Assessment Completed?: Yes
Nausea and Vomiting: Mild nausea with no vomiting
Tactile Disturbances: Mild itching, pins and needles, burning or numbness
Tremor: Moderate, with patient's arms extended
Auditory Disturbances: Not present
Paroxysmal Sweats: Beads of sweat obvious on forehead
Visual Disturbances: Not present
Anxiety: Mild anxiety
Headache, Fullness in Head: Mild
Agitation: Normal activity
Orientation and clouding of sensorium: Oriented and can do serial additions
Total CIWA Score: 14
Alcohol Withdrawal Medication Recommendation: Equal to MSAS Score 5-7. Lorazepam 1mg IV or PO NOW & re-assess q2hrs
<Alessandro Chavis DO - Last Filed: 03/11/25 22:28>
Withdrawal Assessment of Alcohol
Total CIWA Score: 14
Alcohol Withdrawal Medication Recommendation: Equal to MSAS Score 5-7. Lorazepam 1mg IV or PO NOW & re-assess q2hrs
Course
<Aleksandr Weller PA-C - Last Filed: 03/12/25 00:14>
Orders/Labs/Results
Orders:
Orders
03/11/25 21:14
Alcohol Urgent
B-Hydroxybutyrate Urgent
Comment: ADD ON
CPK [Creatine Phosphokinase] Urgent
Complete Blood Count/With Diff Urgent
Comprehensive Metabolic Panel Urgent
GGTP Urgent
Magnesium Urgent
Phosphorus Urgent
03/11/25 21:16
Electrocardiogram (*1) Urgent
Reason for Study: Other
Other Reason for Exam: seizure, ETOH
EKG- Treatment ONCE
Urine Drug Abuse Screen Urgent
03/11/25 21:20
PTT Urgent
Prothrombin Time Urgent
03/11/25 21:29
0.9% Sodium Chloride 1000 ml [Nss] 1,000 ml IV BOLUS
diazePAM [Valium Injection] 5 mg IV NOW STA
03/11/25 22:10
0.9% Sodium Chloride 1000 ml [Nss] 1,000 ml IV BOLUS
Magnesium Sulfate 2 Gram/50 ml [Magnesium Sulfate] 2 gram in 50 ml IV NOW
03/11/25 22:47
Admit/Transfer Patient As Directed
Co-Sign Provider:
Level of Care: Inpatient admission
Assign to:: IMU- Intermediate Care
Physician / Group: Hunter Snider
Diagnosis: alcohol withdraw seizure
Reason for Hospitalization: alcohol withdraw seizure
Expected length of stay greater than two midnights?: Yes
ELOS- Estimated Length of Stay in days: 3
I certify the patient meets the requirements for IP care: Yes
03/11/25 22:48
Code Status As Directed
Resuscitation Status: Full Code
PRN Pain Medication Management As Directed
May give lesser potent ordered pain med per pt: Yes
preference::
Protocol:: Medication orders for pain may be administered in a
manner that supports deferring to patient preference
when the pt is:
- Requesting an ordered lesser potent pain medication.
Least to most potent pain medications are defined
as: acetaminophen < NSAID < tramadol < opioids
(morphine, oxycodone, hydromorphone).
- Requesting a lesser dose of the same medication IF
ORDERED.
- Requesting a less intrusive route of administration
if both routes are prescribed by the provider (PO <
IV).
03/11/25 23:45
0.9% Sodium Chloride [Nss (Preservative Free)] See Protocol IV PRN PRN
FOLic ACID [Folvite] 1 mg 0.9% Sodium Chloride 50 ml [Nss] 50 ml IV DAILYPRN
Lorazepam [Ativan] 1 mg IV Q1HPRN PRN
Lorazepam [Ativan] 1 mg PO Q2HPRN PRN
Lorazepam [Ativan] 2 mg IV Q1HPRN PRN
Ondansetron Injectable [Zofran] 4 mg IV Q6HPRN PRN
Phenobarbital Sodium [Phenobarbital] 260 mg 0.9% Sodium Chloride 100 ml [Nss] 100 ml IV NOW
03/11/25 23:45
Case Management Consult Once
Case Management Consult: Other
Comment: Substance abuse counseling
DIETARY IP CONSULT Routine
Reason for Consult: Nutrition support, possible refeeding guidelines
Urinalysis Routine
Urine Drug Abuse Screen Routine
Activity As Directed
Activity Level: Ambulate
MSAS SCORE As Directed
MSAS Score 0-4: Repeat MSAS every 2 hours until 0-4 for three consecutive assessments, then every 4 hours x 48
hours.
MSAS Score 5-7: For MILD withdrawl symptoms. Repeat MSAS and RASS every 2 hours
MSAS Score 8-11: For MODERATE withdrawal symptoms. Repeat MSAS and RASS every 1 hour. Consider ICU or IMU
level of care.
MSAS Score > 11: For SEVERE withdrawal symptoms. Repeat MSAS and RASS every 1 hour. Notify provider, consider
ICU level of care.
MSAS Additional Instructions: If no improvement or no decrease in score from severe to moderate within 12
hours, consult psychiatry
MSAS Notify Provider: Notify provider if patient requires more than 10 mg of Lorazepam in eight hour period.
Pneumatic Compression Sleeves As Directed
Type: Knee high
Vital Signs As Directed
Frequency: Per unit guidelines
Weight As Directed
Frequency: Once
Comment: on admission
DX Deep Vein Thrombosis Video Routine
03/12/25 00:00
Thiamine Injection 200 mg IV Q8
03/12/25 Breakfast
Regular
Fluid Restriction: 1500 mL/day (50 oz)
Basic Metabolic Panel IN AM
Complete Blood Count/No Diff IN AM
Magnesium IN AM
03/12/25 08:00
FOLic ACID [Folvite] 1 mg PO DAILY
Phenobarbital Sodium [Phenobarbital] 97.5 mg IV TID
03/14/25 08:00
Phenobarbital [Luminal] 64.8 mg PO TID
03/15/25 08:00
Thiamine HCl [Vitamin B1] 100 mg PO BID
03/16/25 08:00
Phenobarbital [Luminal] 32.4 mg PO TID
Abnormal Lab Results
03/11/25
21:14
WBC 3.6 L 10^3/uL
(4.8-10.8)
RBC 3.90 L 10^6/uL
(4.70-6.10)
Hgb 11.7 L g/dL
(13.0-18.0)
Hct 34.7 L %
(39.0-52.0)
Plt Count 106 L 10^3/uL
(130-400)
Absolute Lymphs (auto) 0.8 L 10^3/uL
(1.2-3.4)
Immature Gran % 0.8 H %
(0-0.5)
Monocytes % 17.5 H %
(1.7-9.3)
Sodium 126 L mmol/L
(135-145)
Chloride 87 L mmol/L
(98-107)
Creatinine 0.6 L mg/dL
(0.7-1.3)
Glucose 138 H mg/dl
(70-99)
Magnesium 1.2 L mg/dl
(1.6-2.3)
AST 107 H U/L
(17-59)
ALT 135 H U/L
(0-50)
Creatine Kinase 288 H U/L
(55-170)
03/11/25 21:14
03/11/25 21:14
Vital Signs
Initial and Last Documented VS:
Initial Vital Signs
Temp Pulse Resp BP Pulse Ox
98.8 F 94 14 132/80 96
03/11/25 21:08 03/11/25 21:08 03/11/25 21:08 03/11/25 21:08 03/11/25 21:08
Last Documented Vital Signs
Temp Pulse Resp BP Pulse Ox
99.1 F 86 20 121/80 99
03/11/25 23:52 03/11/25 23:45 03/11/25 23:45 03/11/25 23:00 03/11/25 23:30
<Alessandro Chavis, DO - Last Filed: 03/11/25 22:28>
Orders/Labs/Results
Orders:
Orders
03/11/25 21:14
Alcohol Urgent
B-Hydroxybutyrate Urgent
Comment: ADD ON
CPK [Creatine Phosphokinase] Urgent
Complete Blood Count/With Diff Urgent
Comprehensive Metabolic Panel Urgent
GGTP Urgent
Magnesium Urgent
Phosphorus Urgent
03/11/25 21:16
Electrocardiogram (*1) Urgent
Reason for Study: Other
Other Reason for Exam: seizure, ETOH
EKG- Treatment ONCE
Urine Drug Abuse Screen Urgent
03/11/25 21:20
PTT Urgent
Prothrombin Time Urgent
03/11/25 21:29
0.9% Sodium Chloride 1000 ml [Nss] 1,000 ml IV BOLUS
diazePAM [Valium Injection] 5 mg IV NOW STA
03/11/25 22:10
0.9% Sodium Chloride 1000 ml [Nss] 1,000 ml IV BOLUS
Magnesium Sulfate 2 Gram/50 ml [Magnesium Sulfate] 2 gram in 50 ml IV NOW
03/11/25 22:47
Admit/Transfer Patient As Directed
Co-Sign Provider:
Level of Care: Inpatient admission
Assign to:: IMU- Intermediate Care
Physician / Group: Hunter Snider
Diagnosis: alcohol withdraw seizure
Reason for Hospitalization: alcohol withdraw seizure
Expected length of stay greater than two midnights?: Yes
ELOS- Estimated Length of Stay in days: 3
I certify the patient meets the requirements for IP care: Yes
03/11/25 22:48
Code Status As Directed
Resuscitation Status: Full Code
PRN Pain Medication Management As Directed
May give lesser potent ordered pain med per pt: Yes
preference::
Protocol:: Medication orders for pain may be administered in a
manner that supports deferring to patient preference
when the pt is:
- Requesting an ordered lesser potent pain medication.
Least to most potent pain medications are defined
as: acetaminophen < NSAID < tramadol < opioids
(morphine, oxycodone, hydromorphone).
- Requesting a lesser dose of the same medication IF
ORDERED.
- Requesting a less intrusive route of administration
if both routes are prescribed by the provider (PO <
IV).
03/11/25 23:45
0.9% Sodium Chloride [Nss (Preservative Free)] See Protocol IV PRN PRN
FOLic ACID [Folvite] 1 mg 0.9% Sodium Chloride 50 ml [Nss] 50 ml IV DAILYPRN
Lorazepam [Ativan] 1 mg IV Q1HPRN PRN
Lorazepam [Ativan] 1 mg PO Q2HPRN PRN
Lorazepam [Ativan] 2 mg IV Q1HPRN PRN
Ondansetron Injectable [Zofran] 4 mg IV Q6HPRN PRN
Phenobarbital Sodium [Phenobarbital] 260 mg 0.9% Sodium Chloride 100 ml [Nss] 100 ml IV NOW
03/11/25 23:45
Case Management Consult Once
Case Management Consult: Other
Comment: Substance abuse counseling
DIETARY IP CONSULT Routine
Reason for Consult: Nutrition support, possible refeeding guidelines
Urinalysis Routine
Urine Drug Abuse Screen Routine
Activity As Directed
Activity Level: Ambulate
MSAS SCORE As Directed
MSAS Score 0-4: Repeat MSAS every 2 hours until 0-4 for three consecutive assessments, then every 4 hours x 48
hours.
MSAS Score 5-7: For MILD withdrawl symptoms. Repeat MSAS and RASS every 2 hours
MSAS Score 8-11: For MODERATE withdrawal symptoms. Repeat MSAS and RASS every 1 hour. Consider ICU or IMU
level of care.
MSAS Score > 11: For SEVERE withdrawal symptoms. Repeat MSAS and RASS every 1 hour. Notify provider, consider
ICU level of care.
MSAS Additional Instructions: If no improvement or no decrease in score from severe to moderate within 12
hours, consult psychiatry
MSAS Notify Provider: Notify provider if patient requires more than 10 mg of Lorazepam in eight hour period.
Pneumatic Compression Sleeves As Directed
Type: Knee high
Vital Signs As Directed
Frequency: Per unit guidelines
Weight As Directed
Frequency: Once
Comment: on admission
DX Deep Vein Thrombosis Video Routine
03/12/25 00:00
Thiamine Injection 200 mg IV Q8
03/12/25 Breakfast
Regular
Fluid Restriction: 1500 mL/day (50 oz)
Basic Metabolic Panel IN AM
Complete Blood Count/No Diff IN AM
Magnesium IN AM
03/12/25 08:00
FOLic ACID [Folvite] 1 mg PO DAILY
Phenobarbital Sodium [Phenobarbital] 97.5 mg IV TID
03/14/25 08:00
Phenobarbital [Luminal] 64.8 mg PO TID
03/15/25 08:00
Thiamine HCl [Vitamin B1] 100 mg PO BID
03/16/25 08:00
Phenobarbital [Luminal] 32.4 mg PO TID
Abnormal Lab Results
03/11/25
21:14
WBC 3.6 L 10^3/uL
(4.8-10.8)
RBC 3.90 L 10^6/uL
(4.70-6.10)
Hgb 11.7 L g/dL
(13.0-18.0)
Hct 34.7 L %
(39.0-52.0)
Plt Count 106 L 10^3/uL
(130-400)
Absolute Lymphs (auto) 0.8 L 10^3/uL
(1.2-3.4)
Immature Gran % 0.8 H %
(0-0.5)
Monocytes % 17.5 H %
(1.7-9.3)
Sodium 126 L mmol/L
(135-145)
Chloride 87 L mmol/L
(98-107)
Creatinine 0.6 L mg/dL
(0.7-1.3)
Glucose 138 H mg/dl
(70-99)
Magnesium 1.2 L mg/dl
(1.6-2.3)
AST 107 H U/L
(17-59)
ALT 135 H U/L
(0-50)
Creatine Kinase 288 H U/L
(55-170)
03/11/25 21:14
03/11/25 21:14
Vital Signs
Initial and Last Documented VS:
Initial Vital Signs
Temp Pulse Resp BP Pulse Ox
98.8 F 94 14 132/80 96
03/11/25 21:08 03/11/25 21:08 03/11/25 21:08 03/11/25 21:08 03/11/25 21:08
Last Documented Vital Signs
Temp Pulse Resp BP Pulse Ox
99.1 F 86 20 121/80 99
03/11/25 23:52 03/11/25 23:45 03/11/25 23:45 03/11/25 23:00 03/11/25 23:30
<Aleksandr Weller PA-C - Last Filed: 03/12/25 00:14>
MDM/Problems Addressed
Differential Diagnosis Includes:
EtOH withdrawal seizure
Epileptic seizure
Electrolyte imbalance
Substance abuse
Hyper/hypoglycemia
ICH
MDM/Problems Addressed:
29-year-old male presenting to the ER for evaluation of a reported seizure at home lasting about 45 seconds. Patient fully awake alert and oriented on arrival here and in no acute distress. Tongue contusion/abrasion noted. Patient's CIWA score
14. Will treat with IV Valium. Planning for admission pending remaining workup.
Chronic conditions affecting care: Psychiatric illness
Acute Exacerbation and/or Progression of Chronic Illness: Psychiatric illness
<Aleksandr Weller PA-C - Last Filed: 03/12/25 00:14>
*Pulse Oximetry
SaO2: 94
Oxygen Mode of Delivery: Room air
Patient hypoxic: no
*EKG
Heart Rate: 95
Rate: normal
Rhythm: sinus
Interval: long QT
Ischemia: no ischemia
*Oil Recovery Operator Interpretation
Rate: tachycardiac
Heart Rate: 100
Rhythm: sinus
*Critical Care Note
Total Time (30-74mins, 75-104mins- exclusive of procedures): 30
comment:
Critical care statement: A total of 30 minutes of critical care time was provided for this patient. This includes management of unstable vital signs, evaluation of the patient at bedside, reviewing the patient's pertinent medical records, discussion
with consultants, review of old EKGs and review of pertinent medical records. This time with separate from time utilized to perform the aforementioned documented procedures
<Aleksandr Weller PA-C - Last Filed: 03/12/25 00:14>
Patient Management
Discussion with other providers: Hospitalist
Escalation/DeEscalation of care consider admission/obs:
Patient's labs show a sodium of 126, magnesium of 1.2, mild transaminitis. EKG did show a prolonged QT. I did order him IV magnesium in addition to the IV fluids to correct his electrolyte imbalance as well as help with the long QT. Will avoid
any medications that could potentially further prolong patient's QT at this time. Hospitalist team was notified and accepts for continued evaluation and treatment.
ED Attending Note
<Aleksandr Weller PA-C - Last Filed: 03/12/25 00:14>
-
Portions of this chart may have been created with voice recognition software.� Occasional wrong word or��sound alike� substitutions may have occurred due to the inherent limitations of voice recognition software.
<Alessandro Chavis DO - Last Filed: 03/11/25 22:28>
ED Attending Note
Patient seen and examined by attending physician: Yes
I performed the substantive portion of visit, reviewed & personally made and approve the management plan that is documented in note by myself or MARIAELENA.: Yes
ED Attending Note:
I evaluated patient at bedside he. There is concern for alcohol withdrawal seizure. His tongue shows significant bite ritchie/ecchymosis. Benzos were started.
Discharge Plan
Departure
Patient Disposition: Admit
Date of Disposition: 03/11/25
Time of Disposition: 22:03
Presentation/result/management discussed w/ accepting MD/DO: Hospitalist
Discharge Problem:
Alcohol withdrawal seizure
Interventions
Interventions:
*Risk Screen - Suicide Last Done: 03/11/25 21:10
*General Assessment Last Done: 03/11/25 21:10
*Neglect/Abuse Screening Last Done: 03/11/25 21:10
*ED- Fall Risk Assessment Last Done: 03/11/25 21:10
*ED COVID-19 Vaccine History Last Done: 03/11/25 21:10
*ED Influenza Vaccine History Last Done: 03/11/25 21:10
*Nursing Disposition Last Done: 03/11/25 23:47
ED- Cardiac Assessment Last Done: 03/11/25 21:15
ED- Neurological Assessment Last Done: 03/11/25 21:15
ED- Pulmonary Assessment Last Done: 03/11/25 21:15
Discharge Date and Time
Discharge Date/Time: 03/11/25 23:48
--- NOTE | 2025-03-11 22:15 | HPS.HSE ---
Addendum entered and electronically signed by Hunter Snider DO 03/11/25 23:25:
Patient seen and examined independently. Agree with findings and plan as set forth by RAYNA Cisneros.
Patient is a 29y M [facility] significant for optic neuropathy who presents to ED for evaluation after witnessed tonic-clonic seizure activity at home. Patient drinks regularly (5 nights / week, 30 drinks / week per him) and last drink was 2 days
ago. No prior seizure per patient. No other substance use / abuse. No prior rehab stays, etc.
Ass:
Alcohol Withdrawal Syndrome / Seizure
Alcohol Use Disorder
Hyponatremia secondary to the above
Hypomagnesemia secondary to the above
Anxiety / Depression
Optic Neuropathy
Plan:
Admit for further evaluation and treatment.
High-dose phenobarb protocol.
BZDs PRN for seizure / withdrawal symptoms.
Fluid restriction / electrolyte correction.
Original Note:
Family Physician
-
Family Physician: * NONE
Chief Complaint
-
alcohol withdraw seizure
History of Present Illness
Patient is a 29-year-old male with past medical history significant for alcohol dependency who presented to [facility] for evaluation of alcohol withdraw seizure. Patient reports that he was home earlier today when his little brother witnessed him have
a seizure. ED documentation reports that patient arrived via EMS from home where family reported that he had a tonic-clonic seizure lasting approximately 45 seconds and resolving spontaneously. Patient reports previous withdraw symptoms from alcohol
but never experiences seizures or DTs. Patient reports drinking 5 of 7 days a week, drinks approximately 4-750mL bottles of liquor a week in what he quantifies as approximately 30 drinks a week. Patient currently reports tremors, nausea and feels
anxious. He reports his last drink was 2 days ago and he did experience multiple episodes of emesis yesterday. He notes palpitations intermittently, dizziness and generalized weakness. Denies any recent fever, chills, cough, shortness of breath,
chest pain, diarrhea or urinary symptoms.
Medical History
Past Medical History
Past Medical History: Reports Other
Additional Past Medical History:
alcohol dependency
nutritional optic neuropathy
Past Surgical History: Reports Other
Additional Past Surgical History:
tonsillectomy
wisdom teeth extraction
Social History
Tobacco: Non-smoker
Alcohol: Daily (reports 5 of 7 days per week, 4 - 750mL bottle of liquor per week )
Drug: None
Personal: Single
Living: With Family
Employment: Not Employed
Family History
Family History: Not pertinent
Allergies / Home Medications
Allergies reflects when Allergies were last updated in [employer].
Home Medications with original date entered in [employer]
Allergy/Medication List:
Allergies
Allergy/AdvReac Type Severity Reaction Status Date / Time
No Known Allergies Allergy Unverified 01/04/25 21:40
Home Medications
cholecalciferol (vitamin D3) 50 mcg (2,000 unit) tablet 50 mcg PO DAILY #30 tabs 01/07/25
folic acid 1 mg tablet 1 mg PO DAILY #30 tabs 01/07/25
magnesium oxide 200 mg PO DAILY Supplement #10 tabs 01/07/25
thiamine mononitrate (vit B1) 100 mg tablet 100 mg PO BID #30 tabs 01/07/25
multivitamin 1 tab PO DAILY 03/11/25
Review of Systems
-
History Source: Patient
Constitutional: Denies Fever or Chills
EENT: Denies Sore Throat
Respiratory: Denies Cough, Hemoptysis or Trouble Breathing
Cardiac: Denies Chest Pain, Diaphoresis, Palpitations or Syncope
Abdomen/GI: Reports Nausea, Vomiting and Anorexia (reports drinks and then does not eat ); Denies Abdominal Pain or Diarrhea
: Denies Dysuria, Frequency or Urgency
Musculoskeletal: Denies Joint Pain
Skin: Denies Rash
Neurological: Reports Dizzy, Headache, Weakness and Other (tremors ); Denies Numbness
Endocrine: Denies Polyuria or Polydipsia
Physical Exam
Vital Signs
Vital Signs
Temp Pulse Resp BP Pulse Ox
98.8 F 89 15 120/77 94
03/11/25 21:08 03/11/25 22:00 03/11/25 22:00 03/11/25 22:00 03/11/25 22:10
Physical Exam
General: Well Developed, Well Nourished, No Apparent Distress, Comfortable and Conversant
HEENT: NormoCephalic, Moist mucous membranes, PERRLA, Nose Appears Normal, Ears Appear Normal and Other (Abrasion to the right lateral tongue, no active bleeding )
Respiratory: Clear and Non Labored Respirations; No Wheezes, Rales or Rhonchi
Cardiac: S1/S2 and Regular Rhythm; No Murmur or Peripheral Edema
GI: Soft, Non Tender, Non Distended and Normal Bowel Sounds
Musculoskeletal: No Clubbing, No Cyanosis, No Edema and Other (bilateral upper extremity tremors )
Skin: Warm and IV/Catheter Site
Neuro: Awake and AO x 3
Psych: Calm
Laboratory Results
-
03/11/25 21:14
03/11/25 21:14
Laboratory Results
PT 13.3 Sec (11.4-14.6) 03/11/25 21:20
INR 0.98 03/11/25 21:20
APTT 27.6 Sec (23.4-35.0) 03/11/25 21:20
Total Bilirubin 1.3 mg/dl (0.2-1.3) 03/11/25 21:14
AST 107 U/L (17-59) H 03/11/25 21:14
ALT 135 U/L (0-50) H 03/11/25 21:14
Alkaline Phosphatase 66 U/L (38-126) 03/11/25 21:14
Data Reviewed
-
Medical Tests (Nuc Med, Echo, EKG etc): Report Reviewed by me (EKG: Critical Test Result: Long QTc NORMAL SINUS RHYTHM NONSPECIFIC T WAVE ABNORMALITY PROLONGED QT)
Lab Data: Labs Reviewed by me (Na 126, mag 1.2, AST 107, ALT 135, CK 288, )
Impression/Plan
-
IMPRESSION/PLAN:
#alcohol withdraw seizure
#alcohol dependency
AST 107, ALT 135, CK 288
EKG: Critical Test Result: Long QTc
NORMAL SINUS RHYTHM
NONSPECIFIC T WAVE ABNORMALITY
PROLONGED QT
- Admit to IMU
- MSAS protocol
- phenobarb taper
- supportive care
#hyponatremia
Na 126
likely from drinking large amounts of free water
- fluid restriction
- trend Na
#hypomagnesemia
mag 1.2
- repleted in ED
- trend mag
Code status: full code
DVT prophylaxis: SCDs
[2025-03-11] MEDS: MAGNESIUM SULFATE 50 IV (22:21)
[2025-03-11 23:00] VITALS: BP 121/80
[2025-03-11 23:47] VITALS: BP 136/84
[2025-03-12] VITALS (12 sets, daily range): BP systolic 109–128; BP diastolic 65–87; BMI 25.0
[2025-03-12] MEDS: ZOFRAN 4 MG IV (00:07)
[2025-03-12] MEDS: THIAMINE INJECTION 200 MG IV ×3 (00:07→16:01)
[2025-03-12] MEDS: ATIVAN 1 MG PO ×2 (00:07→04:43)
[2025-03-12] MEDS: PHENOBARBITAL 104 MG IV (00:12)
--- NOTE | 2025-03-12 00:50 | PTCARENOTE ---
Pt arrived from ED appearing to have pleasant demeanor. Pt MSAS scoring a 6. Per protocol medication given, see MAR. Pt has no complaints at this time. Call case within reach. Bed in lowest position fall alarm on.
[2025-03-12 00:53] LABS: GGTP 459 U/L (15-73)
--- NOTE | 2025-03-12 03:01 | PTCARENOTE ---
No Seizure pads found on IMU. Called left message for [employer] for morning delivery if they have. Pillows secured to bed rails for protection. No seizure activity at this time.
[2025-03-12] MEDS: TUMS CHEWABLE TABLET 400 MG PO (04:43)
[2025-03-12 05:17] LABS: Urine Character Clear (Clear)
[2025-03-12 05:19] LABS: Hematocrit 31.4 % (39.0-52.0); Hemoglobin 10.9 g/dL (13.0-18.0); Mean Corp Hgb Conc. 34.7 g/dL (33.0-37.0); Mean Corpuscular Volume 86.7 fL (80.0-94.0); Platelet Count 98 10^3/uL (130-400); Red Cell Dist. Width 13.5 % (11.5-14.5)
[2025-03-12 05:30] LABS: Urine Red Blood Cell 0-2 /HPF (0-2); Urine Squamous Cell 0-2 /LPF (Few); Urine White Cell 0-2 /HPF (0-5)
[2025-03-12 05:36] LABS: Blood Urea Nitrogen 6 mg/dl (9-20); Calcium 8.8 mg/dl (8.4-10.2); Carbon Dioxide 29 mmol/L (22-30); Chloride 93 mmol/L (98-107); Estimated Creatinine Clearance > 125 ml/min; Glucose 104 mg/dl (70-99); Magnesium 1.8 mg/dl (1.6-2.3); Potassium 3.3 mmol/L (3.5-5.1); Sodium 128 mmol/L (135-145); eGFR > 60.00
[2025-03-12] MEDS: PHENOBARBITAL 97.5 MG IV ×3 (07:35→21:10)
[2025-03-12] MEDS: FOLVITE 1 MG PO (07:35)
--- NOTE | 2025-03-12 07:36 | W.PN.HOSP.TC ---
Addendum entered and electronically signed by Holland Gordon MD 03/12/25 14:04:
29-year-old male with history of optic neuropathy presented for tonic-clonic seizure at home. Patient drinks 5 nights a week 30 drinks a week. Last drink was 2 days prior to admission.
Awake alert oriented
Mild tremors
Cardiovascular system S1-S2 appreciated
Chest clear to auscultation
Abdomen soft and nontender
# Seizures
Likely secondary to alcohol use/withdrawal
Consult neurology
Patient was diagnosed with optic neuropathy-unclear reason he thinks it is due to malnutrition. Patient states that he has never had an MRI of the brain.
He is supposed to get MRI of the orbits done through [facility] where he has an appointment coming up.
Patient has not been a longstanding alcoholic and not much change in the pattern of his alcohol intake.
Will do one-time imaging of his brain
# Alcohol abuse/withdrawal-started on phenobarbital taper
# Hyponatremia-likely secondary to seizures
# Mild pancytopenia-likely secondary to alcohol effects on bone marrow
# Transaminitis likely secondary to alcohol use
# Hypomagnesemia-replace
# Hypophosphatemia-recheck
# Prolonged QTc-recheck EKG after correction of electrolytes
# Anxiety and depression
# History of optic neuropathy? Reason unclear. Patient thinks malnutrition related
# DVT prophylaxis-SCds
# Full code
Detailed discussion with patient and mom at bedside. He states that he is depressed and not on any treatment for this. He wants to have a better sleep at night we have ordered Remeron. He has never been to an alcohol rehab before I urged him to
look into one. Case management to help if patient decides to go to a rehab. Long-term effects of alcohol on health was discussed in detail.
Time spent over 50 min
Part of this note was created using voice recognition system. Occasional wrong word or��sound alike� substitutions may have inadvertently occurred due to the inherent limitations of voice recognition software. If noted kindly bring it to my
attention for correction.
Original Note:
Today's Communication/Plan
-
continue phenobarb taper
consult neuro, psych
Assessment / Plan
Assessment / Plan
#Alcohol withdraw seizure
#alcohol dependency
AST 107, ALT 135, CK 288 on admission
repeat EKG with normal Qtc and NSR
- MSAS protocol
- continue phenobarb taper
- supportive care
- consult neuro; ?? if additional workup needed. will get MRI brain in the meantime
- counselling for cessation; patient refuse rehab at this time
- BZDs prn for seizure
# hx of optic neuropathy
-[facility]; awaiting MRI orbit
- check MRI brain
- consult neuro
#Depressed
- not on any meds
- consult psych
- FR
#hyponatremia
Na 128
likely from drinking large amounts of free water
#hypomagnesemia
mag 1.2 on admission; repat 1.8
- repleted in ED
Code status: full code
DVT prophylaxis: SCDs
Discussed with mother at bedside
Anticipated Discharge: Within 24 hours
Subjective/Interval History
-
Date of Service: March 12, 2025
AFVSS. states that 'i am ok'. Denies any Chest pain, sob, abd pain.
Objective Data
-
Labs:
Laboratory Results
03/11/25 03/11/25 03/12/25
21:14 21:20 05:00
WBC 3.6 L 5.3
Hgb 11.7 L 10.9 L
Hct 34.7 L 31.4 L
Plt Count 106 L 98 L
PT 13.3
INR 0.98
APTT 27.6
Sodium 126 L 128 L
Potassium 3.7 3.3 L
Chloride 87 L 93 L
Carbon Dioxide 27 29
BUN 10 6 L
Creatinine 0.6 L 0.5 L
Glucose 138 H 104 H
Calcium 9.9 8.8
Total Bilirubin 1.3
AST 107 H
ALT 135 H
Alkaline Phosphatase 66
Vital Signs:
Vital Signs
Temp Pulse Resp BP Pulse Ox
99.1 F 99 16 117/75 98
03/11/25 23:52 03/12/25 04:00 03/12/25 04:00 03/12/25 04:00 03/12/25 04:00
I&O
03/11/25 03/12/25 03/13/25
06:59 06:59 06:59
Intake Total 824 / 824
Output Total 550 / 550
Balance 274 / 274
Review of Systems
-
History Source: Patient
All other systems: Reviewed and negative
Physical Exam
-
General: No Apparent Distress
Respiratory: Clear to Auscultation and Non Labored Respirations
Cardiac: Regular Rhythm and S1/S2
GI: Soft, Nontender and Nondistended
Musculoskeletal: No Clubbing
Neuro: Awake, Alert and Oriented
Psych: Calm
Data Reviewed
-
Labs: Labs Reviewed by me, Discussed with Physician, Discussed with Patient and Discussed with Family
[2025-03-12] MEDS: KCL 40 MEQ PO (08:17)
--- NOTE | 2025-03-12 08:45 | PTCARENOTE ---
pt aaox3. sleepy. states no pain, states not feeling anxious or hallucinating.
[2025-03-12 11:34] LABS: Iron 86 ug/dl (49-181)
[2025-03-12 11:38] LABS: TSH 2.20 uIU/ml (0.47-4.68)
[2025-03-12 11:42] LABS: Ferritin 430.0 ng/ml (17.9-464.0)
[2025-03-12 11:44] LABS: Total Iron Binding Capacity 271 ug/dl (261-462)
[2025-03-12 11:57] LABS: Vitamin B12 856 pg/ml (239-931)
--- NOTE | 2025-03-12 14:54 | CM ---
staff development manager reviewed patient's chart and met with patient and patient states he lives with his parents in a multilevel home, patient is independent with adl's and ambulation, no dme, therapeutic case manager received a consult for substance abuse counseling
and therapeutic case manager reached out to [facility] to follow up with patient, per patient he goes to counseling once a week and has been to AA meetings.
PCP: None
Pharmacy: [facility] in [place]
Plan; referral sent to [facility].
[2025-03-12] MEDS: NEUTRA-PHOS POWDER PACKET 250 MG PO (16:01)
[2025-03-12] MEDS: REMERON 7.5 MG PO (21:10)
--- NOTE | 2025-03-12 22:53 | CS.PSYCHR ---
Consult Summary - Psychiatry
-
pt seen this evening in consultation due to dperession and substance use disorder
29 yo man admitted following seizure, likely due to alcohol withdrawal. 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 Says he was sitting in lounge chair and next thing
he knew EMS was all around him. Had bitten tongue. Does not recall having seizure previously. Mentions that he has been drinking a lot due to feeling dehydrated, may have led to low sodium (126 on admission
)Pt states he has been depressed for many years, seen once previously by psychaitrist who told him he needed to stop drinking to be treated for depression. Pt declined inpatient rehab referral at that time, opting to try to stop on his own--lasted
two weeks (not the month the psychiatrist has requested) so gave up on treatment.
At this time pt states he is not really interested in sobtiety, though he wants to stop drinking for a bit. Upset that mother keeps harping on need for abstinence.
Significant medical history of optic neuropathy sudden onset January 2024 with vision. Unknown etiology, has seen two ophthamologists who tell him there is no treatment. Scheduled to get an orbital MRI soon at [facility].
Born and raised in [place], third of 4 sons, intact family. Father cancer researcher for [employer] now retired, mother had been [employer] researcher. Pts brothers are challenged, two with special needs, other with addictions (but has
gotten himself together and is getting soon.)
Pt had been 'the moseley child' did well in school, multiple AP classes in , then to [employer] (first [employer], then [employer] [facility] Plays piano, upset that he can no longer see the sheet music. has had many girlfriends but no skilled nursing
relationships. Lives with parents, has not worked since visual problems. Just recently applied for disability.
On interview pt sitting up in ICU bed, attached to monitors. Awake alert pleasant and cooperative. Aware he has a problem with alcohol, but does not think he can honestly say he wants to stop totally, 'I enjoy a couple of beers with friends, wine on
a date, a nice cocktail.' Denies current suicidal ideation, though has thought about it in the past. No signs of psychosis, no cognitive deficits.
Impression: Chronic depression (dysthymia) Alcohol use disorder
Rec: With recent seizure pt is not yet a candidate for antidepressant medication (nearly all lower seizure threshhold as well as tend to lower sodium.)
Will continue to see to present reahb needs, assess for meds
[2025-03-13] VITALS (10 sets, daily range): BP systolic 106–135; BP diastolic 83–101
[2025-03-13] MEDS: THIAMINE INJECTION 200 MG IV ×4 (01:15→23:24)
--- NOTE | 2025-03-13 03:03 | PTCARENOTE ---
Pt aaox3, able to make needs known. MSAS 4. NSR on monitor, ST when ambulating. Lungs CTA on RA. 1500FR. Remains on phenobarb taper and IV thiamine. VSS. Call case within reach. Care ongoing.
[2025-03-13 06:32] LABS: Hematocrit 36.4 % (39.0-52.0); Hemoglobin 12.6 g/dL (13.0-18.0); Mean Corp Hgb Conc. 34.6 g/dL (33.0-37.0); Mean Corpuscular Volume 89.9 fL (80.0-94.0); Platelet Count 79 10^3/uL (130-400); Red Cell Dist. Width 13.2 % (11.5-14.5)
[2025-03-13 07:04] LABS: ALT (SGPT) 177 U/L (0-50); AST (SGOT) 256 U/L (17-59); Albumin 4.6 g/dl (3.5-5.0); Alkaline Phosphatase 57 U/L (38-126); Blood Urea Nitrogen 3 mg/dl (9-20); Calcium 9.4 mg/dl (8.4-10.2); Carbon Dioxide 28 mmol/L (22-30); Chloride 98 mmol/L (98-107); Estimated Creatinine Clearance > 125 ml/min; Glucose 92 mg/dl (70-99); Magnesium 1.8 mg/dl (1.6-2.3); Potassium 3.4 mmol/L (3.5-5.1); Sodium 133 mmol/L (135-145); Total Protein 7.5 g/dl (6.3-8.2); eGFR > 60.00
--- NOTE | 2025-03-13 07:19 | W.PN.HOSP.TC ---
Addendum entered and electronically signed by Holland Gordon MD 03/13/25 11:16:
29-year-old male with history of optic neuropathy presented for tonic-clonic seizure at home. Patient drinks 5 nights a week 30 drinks a week. Last drink was 2 days prior to admission.
Awake alert oriented
Mild tremors
Cardiovascular system S1-S2 appreciated
Chest clear to auscultation
Abdomen soft and nontender
# Seizures
Likely secondary to alcohol use/withdrawal
Consult neurology
Patient was diagnosed with optic neuropathy-unclear reason he thinks it is due to malnutrition. Patient states that he has never had an MRI of the brain.
He is supposed to get MRI of the orbits done through [facility] where he has an appointment coming up.
Patient has not been a longstanding alcoholic and not much change in the pattern of his alcohol intake.
Will do one-time imaging of his brain and an EEG
# Alcohol abuse/withdrawal-started on phenobarbital taper, Thiamine.
# Hyponatremia-likely secondary to seizures
# Mild pancytopenia-likely secondary to alcohol effects on bone marrow
# Transaminitis likely secondary to alcohol use
# Hypomagnesemia-replace prn
# Hypophosphatemia-recheck
# Prolonged QTc-Improved
# Anxiety and depression- Psyche eval noted. Pt says he slept better with Remeron.
# History of optic neuropathy? Reason unclear. Patient thinks malnutrition related. Has an appt with [facility] coming up.
# DVT prophylaxis-SCds
# Full code
He does not want to go to rehab because he thinks that wants to go to alcohol rehab take you cannot drink any alcohol at all in your life again. He wants to have alcohol socially when he goes out and he thinks that going to alcohol rehab will
prohibit him from doing this. I discussed with him that thinking of stopping alcohol on his own may not be a practical solution. He will effects of alcohol, cirrhosis everything was explained to the patient.
Transfer to tele.
Part of this note was created using voice recognition system. Occasional wrong word or��sound alike� substitutions may have inadvertently occurred due to the inherent limitations of voice recognition software. If noted kindly bring it to my
attention for correction.
Original Note:
Today's Communication/Plan
-
transfer to tele
brain MRI
eeg
Assessment / Plan
Assessment / Plan
#Alcohol withdraw seizure
#alcohol dependency
AST 107, ALT 135, CK 288 on admission
repeat EKG with normal Qtc and NSR
- MSAS protocol
- continue phenobarb taper
- supportive care
- consulted neuro
- will get MRI brain and EEG in the meantime
- counselling for cessation; patient refuse rehab at this time
- BZDs prn for seizure
- transfer to tele
# tranaminitis
- likely from etoh use
- repeat in the AM
# hx of optic neuropathy
-[facility]s [facility]; awaiting MRI orbit
- check MRI brain
- consulted neuro
#Depressed
- not on any meds
- appreciate psych input; no anti dep since recent seizure
-sleep improved with remeron
#hyponatremia
improved
Na 133
likely from drinking large amounts of free water
#hypomagnesemia
# hypophos
mag 1.2 on admission; repeat 1.8
-phos on 03/12/25 1.7 replaced and repeat 3.2
Code status: full code
DVT prophylaxis: SCDs
Anticipated Discharge: Within 24 hours
Subjective/Interval History
-
Date of Service: March 13, 2025
AFVSS. overall feel much better
Objective Data
-
Labs:
Laboratory Results
03/13/25
05:54
WBC 3.3 L
Hgb 12.6 L
Hct 36.4 L
Plt Count 79 L
Sodium 133 L
Potassium 3.4 L
Chloride 98
Carbon Dioxide 28
BUN 3 L
Creatinine 0.7
Glucose 92
Calcium 9.4
Total Bilirubin 1.3
AST 256 H
ALT 177 H
Alkaline Phosphatase 57
Vital Signs:
Vital Signs
Temp Pulse Resp BP Pulse Ox
97.8 F 95 11 121/87 98
03/13/25 03:00 03/13/25 06:00 03/13/25 06:00 03/13/25 06:00 03/13/25 06:00
I&O
03/12/25 03/13/25 03/14/25
06:59 06:59 06:59
Intake Total 824 / 824 720 / 720
Output Total 550 / 550 600 / 600
Balance 274 / 274 120 / 120
Review of Systems
-
History Source: Patient
All other systems: Reviewed and negative
Physical Exam
-
General: No Apparent Distress
Respiratory: Clear to Auscultation and Non Labored Respirations
Cardiac: Regular Rhythm and S1/S2
GI: Soft, Nontender and Nondistended
Musculoskeletal: No Clubbing
Neuro: Awake, Alert and Oriented
Psych: Calm
Data Reviewed
-
Labs: Labs Reviewed by me, Discussed with Physician and Discussed with Patient
[2025-03-13] MEDS: KCL 40 MEQ PO (08:11)
[2025-03-13] MEDS: PHENOBARBITAL 97.5 MG IV ×3 (08:11→21:05)
[2025-03-13] MEDS: FOLVITE 1 MG PO (08:11)
--- NOTE | 2025-03-13 08:50 | CM ---
[employer] division manager received a call from Faith at [facility] who met with patient yesterday, patient is not agreeable to inpatient treatment but is agreeable to IOP program with [facility], they will coordinated directly with patient, support group for
patient's mother was also discussed.
Plan; Home when stable with IOP through [facility].
--- NOTE | 2025-03-13 11:15 | PTCARENOTE ---
pt downgraded to teklemetry. no bed assignment at this time. pt currently off monitor for MRI.
--- NOTE | 2025-03-13 16:57 | W.PN.UPDATE ---
Update Note
Progress Note Update
patient seen chart reviewed. discussed with nursing. mr tierney was quite receptive to talking about his addiction. he has been drinking since he was 12 years old. there is a strong fh alcoholism. he used to drink with a cousin and cousin's
older brother used to get them the etoh. he had periods where he drank very heavily including around the time when he was living in [place] and was dx with optic neuropathy which he said he was told was nutritional as he was basically eating
nothing and drinking massively. he said he was told to stop drinking or he would be blind and that there was not much at this point that could be done for him and this is a very painful issue. he is going to [facility] for followup and trying to be
hopeful. 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 he has after the dx tried to stay sober but when he lost his job the drinking escalated again. 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 discussed the concept of etoh as an illness. he is willing to go to iop at [facility] [place]. we talked about his depression. he has been
depressed and anxious since his teen years. he has had a lot of psychotherapy over the years. he saw dr feldman here to discuss meds but was told he would need to stay sober for [address] feldman would prescribe for him. he says one of
his big issues is sleep. he has gone for three days with only three hours of sleep nightly. he does not seem to describe jessica i don't hear inc energy dec NEED for sleep but he does say he ruminates at hs. no explicit fh of bipolar butashley talamantes of his
brothers has a massive temper and has hx meth and etoh addiction but sober for two years. this bro has owned or wrecked nine cars in his short life. we discussed neurontin 300 mg po q hs for sleep. might consider this for anxiety as well during the
day and of course it would not be an issue given sz. will follow
[2025-03-13] MEDS: REMERON 7.5 MG PO (21:05)
[2025-03-13] MEDS: NEURONTIN 300 MG PO (21:05)
--- NOTE | 2025-03-13 21:41 | PTCARENOTE ---
Assumed care of patient from dayshift RN. Patient aaox3, denies any pain. MSAS 3 (see worklist). SpO2 96% on RA. NSR on the monitor, tachy at times with hr 80-110s. While ambulating patient's hr increased to 120-160s, but quickly returned to 80s
with rest. OLGA LIDIA medications administered. Verbal report provided to YAIMA Trejo. Patient transported via wheelchair with all belongings to [facility].
[2025-03-14 03:12] VITALS: BP 126/83
[2025-03-14 07:32] VITALS: BP 133/96
[2025-03-14 09:39] LABS: Hematocrit 37.9 % (39.0-52.0); Hemoglobin 12.8 g/dL (13.0-18.0); Mean Corp Hgb Conc. 33.8 g/dL (33.0-37.0); Mean Corpuscular Volume 88.6 fL (80.0-94.0); Platelet Count 96 10^3/uL (130-400); Red Cell Dist. Width 13.7 % (11.5-14.5)
[2025-03-14] MEDS: LUMINAL 64.8 MG PO ×3 (10:00→21:01)
[2025-03-14] MEDS: FOLVITE 1 MG PO (10:01)
[2025-03-14] MEDS: THIAMINE INJECTION 200 MG IV ×2 (10:01→15:13)
[2025-03-14 10:41] LABS: ALT (SGPT) 347 U/L (0-50); AST (SGOT) 553 U/L (17-59); Albumin 4.7 g/dl (3.5-5.0); Alkaline Phosphatase 62 U/L (38-126); Blood Urea Nitrogen 6 mg/dl (9-20); Calcium 9.5 mg/dl (8.4-10.2); Carbon Dioxide 25 mmol/L (22-30); Chloride 99 mmol/L (98-107); Estimated Creatinine Clearance > 125 ml/min; Glucose 105 mg/dl (70-99); Potassium 4.1 mmol/L (3.5-5.1); Sodium 134 mmol/L (135-145); Total Protein 7.5 g/dl (6.3-8.2); eGFR > 60.00
[2025-03-14 11:16] VITALS: BP 138/97
[2025-03-14 11:24] LABS: COVID-19 Antigen Negative (Negative)
--- NOTE | 2025-03-14 11:49 | W.PN.HOSP.TC ---
Today's Communication/Plan
-
USS/Doppler
Hepatitis panel
Watch Lfts
Check CPK
Await EEG results
Needs Neuro follow up
Assessment / Plan
Assessment / Plan
29-year-old male with history of optic neuropathy presented for tonic-clonic seizure at home. Patient drinks 5 nights a week 30 drinks a week. Last drink was 2 days prior to admission.
Awake alert oriented
Mild tremors
Cardiovascular system S1-S2 appreciated
Chest clear to auscultation
Abdomen soft and nontender
MRI of the brain-few subcortical white matter foci of increasing mild intensity which are nonspecific. Differential includes demyelination, gliosis, chronic ischemic change, vasculitis, Lyme disease, migraine headaches. No abnormal intracranial
enhancement. Small central pontine lesion. May be related to remote infarct, trauma or demyelination with inactive plaque. No abnormal enhancement. No evidence of mesial temporal sclerosis.
# Seizures
Likely secondary to alcohol use/withdrawal
Consult neurology
Patient was diagnosed with optic neuropathy-unclear reason he thinks it is due to malnutrition.
He is supposed to get MRI of the orbits done through [facility] where he has an appointment coming up.
Patient has been a longstanding alcoholic and not much change in the pattern of his alcohol intake.
MRI as above- He needs OP Neuro follow up
EEG done results pending.
# Alcohol abuse/withdrawal-started on phenobarbital taper. Pt feels a lot better
# Hyponatremia-likely secondary to seizures
# Mild pancytopenia-likely secondary to alcohol effects on bone marrow
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 Check Doppler and also hepatitis panel as numbers gong up.
# Hypomagnesemia-replace prn
# Hypophosphatemia-recheck better
# Prolonged QTc-Improved
# Anxiety and depression- Psyche eval noted. Pt says he slept better with Remeron. Now that he is on Neurontin, Ill stop Remeron.
# History of optic neuropathy? Reason unclear. Patient thinks malnutrition related. Has an appt with [facility] coming up.
# DVT prophylaxis-SCDs
# Full code
He does not want to go to rehab because he thinks that wants to go to alcohol rehab take you cannot drink any alcohol at all in your life again. He wants to have alcohol socially when he goes out and he thinks that going to alcohol rehab will
prohibit him from doing this. I discussed with him that thinking of stopping alcohol on his own may not be a practical solution. He will effects of alcohol, cirrhosis everything was explained to the patient.
Part of this note was created using voice recognition system. Occasional wrong word or��sound alike� substitutions may have inadvertently occurred due to the inherent limitations of voice recognition software. If noted kindly bring it to my
attention for correction.
Anticipated Discharge: 24 - 48 hours
Subjective/Interval History
-
Date of Service: March 14, 2025
Objective Data
-
Labs:
Laboratory Results
03/14/25
09:12
WBC 5.2
Hgb 12.8 L
Hct 37.9 L
Plt Count 96 L D
Sodium 134 L
Potassium 4.1
Chloride 99
Carbon Dioxide 25
BUN 6 L
Creatinine 0.6 L
Glucose 105 H
Calcium 9.5
Total Bilirubin 0.9
AST 553 H*
ALT 347 H
Alkaline Phosphatase 62
Vital Signs:
Vital Signs
Temp Pulse Resp BP Pulse Ox
99.2 F 97 17 138/97 98
03/14/25 11:16 03/14/25 11:16 03/14/25 11:16 03/14/25 11:16 03/14/25 11:16
I&O
03/13/25 03/14/25 03/15/25
06:59 06:59 06:59
Intake Total 720 / 720 720 / 720
Output Total 600 / 600
Balance 120 / 120 720 / 720
[2025-03-14 14:16] LABS: Hepatitis B Surface Antigen Negative (Negative)
[2025-03-14 14:33] LABS: Hepatitis A Antibody, Total Positive (Negative); Hepatitis C Antibody Negative (Negative)
[2025-03-14 15:08] VITALS: BP 149/100
[2025-03-14] MEDS: TYLENOL 650 MG PO (15:12)
--- NOTE | 2025-03-14 15:54 | CM ---
Home with stable and IO through [facility].
Plan; Home at discharge.
--- NOTE | 2025-03-14 16:38 | W.PN.UPDATE ---
Update Note
Progress Note Update
pt seen, chart reviewed. waiting to go for liver ultrasound. brain MRI results interesting with possible pontine demyelinating lesion as well as left frontal small high intensity lesion. Remains unwilling to consider total sobriety, plans to prove
wrong those that say controlled drinking is not possible. less depressed today, mother here and they had been discussing things. continue with current plan
--- NOTE | 2025-03-14 18:41 | EEG.RPT ---
Electroencephalogram Report
Recording
Date of EE03/14/25
Type of EEG: Routine
Length of EEG recordin minutes
Done with Video Recording: Yes
Patient Status: Inpatient
Recording Conditions: Awake and Drowsy
Hyperventilation Performed: No
Photic Stimulation Performed: Yes
Report
LESS THAN 1 HOUR EEG INTERPRETATION:
Unremarkable EEG for age
CLINICAL CORRELATION:
A normal EEG does not rule out a diagnosis of epilepsy. If clinical suspicion for seizure persists, a prolonged recording may be warranted.
Clinical correlation is advised.
METHODS:
A 21 channel digitized electroencephalogram (EEG) was performed using the 10/20 international system of electrode placement and one-lead of ECG recorded. The [employer] quantitative EEG system was utilized.
ELECTROENCEPHALOGRAPHER IMPRESSION(S):
Quality of study
Good
Background
There was an unremarkable anterior-posterior voltage gradient of alpha frequency.
With eye opening the background activity changed to a low voltage mixture of frequencies.
There were no significant asymmetries of background activity noted.
Sleep
Drowsiness present
Photic Stimulation
No activation
ECG
Normal sinus rhythm
[2025-03-14 19:16] VITALS: BP 140/100
[2025-03-14] MEDS: NEURONTIN 300 MG PO (21:01)
[2025-03-14 23:00] VITALS: BP 119/72
[2025-03-15 03:25] VITALS: BP 125/84
[2025-03-15 07:55] VITALS: BP 136/91
[2025-03-15] MEDS: LUMINAL 32.4 MG PO ×3 (08:34→21:31)
[2025-03-15] MEDS: FOLVITE 1 MG PO (08:35)
[2025-03-15] MEDS: VITAMIN B1 100 MG PO ×2 (08:35→19:40)
[2025-03-15 10:16] LABS: ALT (SGPT) 309 U/L (0-50); AST (SGOT) 354 U/L (17-59); Albumin 4.1 g/dl (3.5-5.0); Alkaline Phosphatase 51 U/L (38-126); Blood Urea Nitrogen 8 mg/dl (9-20); Calcium 9.3 mg/dl (8.4-10.2); Carbon Dioxide 27 mmol/L (22-30); Chloride 100 mmol/L (98-107); Estimated Creatinine Clearance > 125 ml/min; Glucose 84 mg/dl (70-99); Potassium 4.4 mmol/L (3.5-5.1); Sodium 131 mmol/L (135-145); Total Protein 6.7 g/dl (6.3-8.2); eGFR > 60.00
[2025-03-15 11:26] VITALS: BP 121/80
--- NOTE | 2025-03-15 14:37 | W.PN.HOSP.TC ---
Today's Communication/Plan
-
Lasix
Neuro re eval
Assessment / Plan
Assessment / Plan
29-year-old male with history of optic neuropathy presented for tonic-clonic seizure at home. Patient drinks 5 nights a week 30 drinks a week. Last drink was 2 days prior to admission.
Awake alert oriented
Mild tremors
Cardiovascular system S1-S2 appreciated
Chest clear to auscultation
Abdomen soft and nontender
MRI of the brain-few subcortical white matter foci of increasing mild intensity which are nonspecific. Differential includes demyelination, gliosis, chronic ischemic change, vasculitis, Lyme disease, migraine headaches. No abnormal intracranial
enhancement. Small central pontine lesion. May be related to remote infarct, trauma or demyelination with inactive plaque. No abnormal enhancement. No evidence of mesial temporal sclerosis.
Doppler of the abdomen-normal abdominal vasculature. Fatty liver. Splenomegaly. No gallstones or biliary ductal dilatation.
# Seizures
Likely secondary to alcohol use/withdrawal
Consult neurology
Patient was diagnosed with optic neuropathy-unclear reason he thinks it is due to malnutrition.
He is supposed to get MRI of the orbits done through [facility] where he has an appointment coming up.
Patient has been a longstanding alcoholic and not much change in the pattern of his alcohol intake.
MRI as above- Requested neuro eval.
EEG NO Sz
# Alcohol abuse/withdrawal-started on phenobarbital taper. Pt feels a lot better
# Hyponatremia-secondary to excess water intake patient admits to it. Fluid restriction. Will give a dose of Lasix now.
# Mild pancytopenia-likely secondary to alcohol effects on bone marrow
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 Numbers are better. Hepatitis panel negative. Ultrasound normal vasculature. Fatty liver
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
# Hypomagnesemia-replace prn
# Hypophosphatemia-recheck better
# Prolonged QTc-Improved
# Anxiety and depression- Psyche eval noted. Continue Neurontin.
# History of optic neuropathy? Reason unclear. Patient thinks malnutrition related. Has an appt with [facility] coming up.
# DVT prophylaxis-SCDs
# Full code
He does not want to go to rehab because he thinks that wants to go to alcohol rehab take you cannot drink any alcohol at all in your life again. He wants to have alcohol socially when he goes out and he thinks that going to alcohol rehab will
prohibit him from doing this. I discussed with him that thinking of stopping alcohol on his own may not be a practical solution. He will effects of alcohol, cirrhosis everything was explained to the patient.
Part of this note was created using voice recognition system. Occasional wrong word or��sound alike� substitutions may have inadvertently occurred due to the inherent limitations of voice recognition software. If noted kindly bring it to my
attention for correction.
Anticipated Discharge: Within 24 hours
Subjective/Interval History
-
Date of Service: March 15, 2025
Objective Data
-
Labs:
Laboratory Results
03/15/25
09:32
Sodium 131 L
Potassium 4.4
Chloride 100
Carbon Dioxide 27
BUN 8 L
Creatinine 0.5 L
Glucose 84
Calcium 9.3
Total Bilirubin 0.7
AST 354 H
ALT 309 H
Alkaline Phosphatase 51
Vital Signs:
Vital Signs
Temp Pulse Resp BP Pulse Ox
98.8 F 88 16 121/80 99
03/15/25 11:26 03/15/25 11:26 03/15/25 11:26 03/15/25 11:26 03/15/25 11:26
I&O
03/14/25 03/15/25 03/16/25
06:59 06:59 06:59
Intake Total 720 / 720 640 / 640
Balance 720 / 720 640 / 640
--- NOTE | 2025-03-15 14:59 | CON.NEURO ---
Addendum entered and electronically signed by Hermilo De Leon MD 03/15/25 15:17:
Patient license is from [place] but he is currently residing with his parents here in [place]. I will still report to the [place] DMV using his current address. According to epilepsy [employer], [place] is not a mandatory reporting state.
Original Note:
Neuro Assessment/Plan
Assessment
#Alcohol Withdrawal Seizure
Had first life time seizure (LOC, tongue biting, post-ictal state) 2 days after stopping alcohol. Typically drinks 30 drinks a week, but stopped abruptly.
Plan
- No need for ASM at this time
- Counsled on alcohol cessation
- No need for EEG at this time
- Report to DMV, explained to patient
- continue thiamine supplementation
Consultation
Order
Date of Consultation: 03/15/25
Requesting Provider:
Reason for Consult: seizure
Subjective/Objective
Subjective Data
Date of Service: March 15, 2025
Patient is a 29-year-old male with past medical history significant for alcohol dependency c/b optic neuropathy presenting for first life time seizure. He typically drinks 30 drinks a week of hard liquor. He stopped cold turkey Monday (6 days prior
to consultation). On Monday (4 days prior to consultation) he lost conciousness and woke up with EMS around him. He was confused to the year and had blood on his chin from biting his tongue. No urinary incontinence. Back at baseline at this time.
No family history of seizures or epilepsy.
PMH:
alcohol dependency
nutritional optic neuropathy
Past Surgical History: Reports Other
Additional Past Surgical History:
tonsillectomy
wisdom teeth extraction
Social History
Tobacco: Non-smoker
Alcohol: Daily (reports 5 of 7 days per week, 4 - 750mL bottle of liquor per week )
Drug: None
Personal: Single
Living: With Family
Employment: Not Employed
Drives
Family History
Family History: NO FH of epilepsy
Allergies
Allergy/AdvReac Type Severity Reaction Status Date / Time
No Known Allergies Allergy Unverified 01/04/25 21:40
Home Medications
Doesn't take any medications at home
Objective Data
Vital Signs
Temp Pulse Resp BP Pulse Ox
37.1 C 88 16 121/80 99
03/15/25 11:26 03/15/25 11:26 03/15/25 11:26 03/15/25 11:26 03/15/25 11:26
Lab Results
03/14/25 09:12
03/15/25 09:32
PT 13.3 Sec (11.4-14.6) 03/11/25 21:20
INR 0.98 03/11/25 21:20
APTT 27.6 Sec (23.4-35.0) 03/11/25 21:20
Sodium 131 mmol/L (135-145) L 03/15/25 09:32
Potassium 4.4 mmol/L (3.5-5.1) 03/15/25 09:32
BUN 8 mg/dl (9-20) L 03/15/25 09:32
Glucose 84 mg/dl (70-99) 03/15/25 09:32
Calcium 9.3 mg/dl (8.4-10.2) 03/15/25 09:32
Phosphorus 3.2 mg/dl (2.5-4.5) 03/13/25 05:54
Vitamin B12 856 pg/ml (239-931) 03/12/25 05:00
Ur Buprenorphine Cancelled 03/12/25 05:00
Ur Buprenorphine Negative (Negative) 03/12/25 05:00
Patient Allergies
No Known Allergies Allergy (Unverified 01/04/25 21:40)
Review of Systems
-
All other systems: Reviewed and negative
Physical Exam
-
General: Well Developed, Well Nourished and No Apparent Distress
Eyes: Unremarkable
HEENT: Normocephalic
Skin: Unremarkable
Extremities: No Clubbing
Psych: Unremarkable
Extended Neurological Exam
Mood & Affect: Mood Unremarkable and Affect Unremarkable
Attention Span & Concentration: Awake, Alert and Interactive
Memory: Unremarkable
Tremor: Distal (fine fast postural tremor in bilateral hands)
Involuntary Movement: None
Speech: Quality Unremarkable, Quantity Unremarkable and Rate of Production Unremarkable
Cranial Nerve II: Left Eye: Pupillary Reactivity Unremarkable, Pupillary Size Unremarkable and Visual [place] Intact
Cranial Nerve II: Right Eye: Pupillary Reactivity Unremarkable
Cranial Nerves III, IV, : Extraocular Movement: Extraocular Movement Full in all Directions
Cranial Nerve V: Facial Sensation: Intact to Light Touch
Cranial Nerve VII: Facial Symmetry: Normal Facial Symmetry
Cranial Nerve VIII: Hearing: Unremarkable Hearing to Normal Conversational Volume
Cranial Nerves IX, X: Palate Movement: Palate Elevation Symmetric
Cranial Nerve XI: Shoulder Shrug: Unremarkable
Cranial Nerve XII: Tongue Protusion: Midline
Muscle Strength, Overall: Full Throughout
Muscle Bulk & Tone: Bulk Unremarkable
Deep Tendon Reflexes: Unremarkable Throughout
Touch Sensation: Unremarkable
Coordination: [id number] Testing Unremarkable
Gait & Station: Unremarkable Arm Swing and Up from Seated Without Problem
Data Reviewed
-
CT Head: Image Reviewed (No acute hemorrhage)
MRI Head: Image Reviewed (No acute stroke, scattered white matter disease)
Medications
-
Active Medications
Generic Name Dose Route Start Last Admin
Trade Name Freq PRN Reason Stop Dose Admin
Calcium Carbonate 400 mg 03/12/25 01:24 03/12/25 04:43
Calcium Antacid 200 Mg (Calcium Carbonate 500 Mg) Chew Tablet PO 04/09/25 01:23 400 mg
Q4HPRN PRN Administration
indigestion
Folic Acid 1 mg 03/12/25 08:00 03/15/25 08:35
Folic Acid 1 Mg Tablet PO 04/09/25 07:59 1 mg
DAILY OLGA LIDIA Administration
Gabapentin 300 mg 03/13/25 22:00 03/14/25 21:01
Gabapentin 300 Mg Capsule PO 04/10/25 21:59 300 mg
HS OLGA LIDIA Administration
Folic Acid 1 mg/ Sodium 50.2 mls @ 200.8 mls/hr 03/11/25 23:45
Chloride IV 04/08/25 23:44
DAILYPRN PRN
if NPO
Lorazepam 1 mg 03/11/25 23:45 03/12/25 04:43
Lorazepam 1 Mg Tablet PO 04/08/25 23:44 1 mg
Q2HPRN PRN Administration
MSAS 5-7
Lorazepam 1 mg 03/11/25 23:45
Lorazepam 2 Mg/Ml Vial IV 04/08/25 23:44
Q1HPRN PRN
MSAS 8-11
Lorazepam 2 mg 03/11/25 23:45
Lorazepam 2 Mg/Ml Vial IV 04/08/25 23:44
Q1HPRN PRN
MSAS > 11
Ondansetron HCl 4 mg 03/11/25 23:45 03/12/25 00:07
Ondansetron 4 Mg/2 Ml Vial IV 04/08/25 23:44 4 mg
Q6HPRN PRN Administration
nausea and vomiting
Phenobarbital Sodium 32.4 mg 03/15/25 08:00 03/15/25 08:34
Phenobarbital 32.4 Mg Tablet PO 03/16/25 08:01 32.4 mg
TID OLGA LIDIA Administration
Sodium Chloride 0 ml 03/11/25 23:45
Sodium Chloride 0.9% (Preservative Free) 10 Ml Vial IV 04/08/25 23:44
PRN PRN
To dilute IV Ativan
Protocol
Sodium Chloride 0 flush 03/11/25 23:00
Sodium Chloride 0.9% (Flush) Syringe IV 04/08/25 22:59
PER PROTOCOL OLGA LIDIA
Thiamine HCl 100 mg 03/15/25 08:00 03/15/25 08:35
Thiamine 100 Mg Tablet PO 04/12/25 07:59 100 mg
BID OLGA LIDIA Administration
Home Medications
�Medication �Instructions �Recorded
cholecalciferol (vitamin D3) 50 50 mcg PO DAILY #30 tabs 01/07/25
mcg (2,000 unit) tablet
folic acid 1 mg tablet 1 mg PO DAILY #30 tabs 01/07/25
magnesium oxide 200 mg PO DAILY Supplement #10 tabs 01/07/25
thiamine mononitrate (vit B1) 100 100 mg PO BID #30 tabs 01/07/25
mg tablet
multivitamin 1 tab PO DAILY Supplement 03/11/25
[2025-03-15] MEDS: LASIX 20 MG PO (15:41)
[2025-03-15 15:53] VITALS: BP 153/96
--- NOTE | 2025-03-15 17:08 | W.PN.UPDATE ---
Update Note
Progress Note Update
pt seen for further assessment, discussion of his plans for sobriety. continues to decline rehab, but willing to commit to 90 days of sobriety to start. has spoken with good friend who has 48 days sober, feels he can join him in this quest. awaiting
results of MRI and abd ultrasound, hopes to go home soon. I met with mother briefly, who is exasperated that pt is not willing to commit to [facility] sobriety; discussed family dynamic issues, how she might get better results with less confrontation.
[2025-03-15] MEDS: BENADRYL 50 MG PO (21:30)
[2025-03-15] MEDS: MELATONIN 5 MG PO (21:31)
[2025-03-15] MEDS: NEURONTIN 300 MG PO (21:31)
[2025-03-15 22:34] VITALS: BP 104/67
[2025-03-15 22:54] VITALS: BP 104/67
[2025-03-16 07:05] VITALS: BP 133/90
[2025-03-16] MEDS: FOLVITE 1 MG PO (07:35)
[2025-03-16] MEDS: VITAMIN B1 100 MG PO (07:35)
[2025-03-16] MEDS: LUMINAL 32.4 MG PO (07:35)
[2025-03-16 09:46] LABS: ALT (SGPT) 390 U/L (0-50); AST (SGOT) 375 U/L (17-59); Albumin 4.6 g/dl (3.5-5.0); Alkaline Phosphatase 67 U/L (38-126); Blood Urea Nitrogen 10 mg/dl (9-20); Calcium 9.5 mg/dl (8.4-10.2); Carbon Dioxide 26 mmol/L (22-30); Chloride 98 mmol/L (98-107); Estimated Creatinine Clearance > 125 ml/min; Glucose 91 mg/dl (70-99); Potassium 3.9 mmol/L (3.5-5.1); Sodium 134 mmol/L (135-145); Total Protein 7.3 g/dl (6.3-8.2); eGFR > 60.00
--- NOTE | 2025-03-16 14:37 | W.PN.HOSP.TC ---
Today's Communication/Plan
-
Discharge
Assessment / Plan
Assessment / Plan
29-year-old male with history of optic neuropathy presented for tonic-clonic seizure at home. Patient drinks 5 nights a week 30 drinks a week. Last drink was 2 days prior to admission.
Awake alert oriented
No tremors
Cardiovascular system S1-S2 appreciated
Chest clear to auscultation
Abdomen soft and nontender
MRI of the brain-few subcortical white matter foci of increasing mild intensity which are nonspecific. Differential includes demyelination, gliosis, chronic ischemic change, vasculitis, Lyme disease, migraine headaches. No abnormal intracranial
enhancement. Small central pontine lesion. May be related to remote infarct, trauma or demyelination with inactive plaque. No abnormal enhancement. No evidence of mesial temporal sclerosis.
Doppler of the abdomen-normal abdominal vasculature. Fatty liver. Splenomegaly. No gallstones or biliary ductal dilatation.
Feeling better. Dressed to go home. Really wants to go home.
# Seizures
Likely secondary to alcohol use/withdrawal
Neurology evaluation appreciated
Patient was diagnosed with optic neuropathy-unclear reason he thinks it is due to malnutrition.
He is supposed to get MRI of the orbits done through [facility] eye where he has an appointment coming up.
Patient has been a longstanding alcoholic and not much change in the pattern of his alcohol intake.
MRI as above
Neurology reported patient to DMV
EEG NO Sz
# Alcohol abuse/withdrawal-started on phenobarbital taper. Pt feels a lot better
# Hyponatremia-secondary to excess water intake patient admits to it. Fluid restriction. Will give a dose of Lasix now.
# Mild pancytopenia-likely secondary to alcohol effects on bone marrow
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 Numbers are almost stable slightly elevated. Hepatitis panel negative. Ultrasound normal vasculature. Fatty liver. I have given him a prescription for repeat labs midweek
next week.
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
# Hypomagnesemia-replace prn
# Hypophosphatemia-recheck better
# Prolonged QTc-Improved
# Anxiety and depression- Psyche eval noted. Continue Neurontin.
# History of optic neuropathy? Reason unclear. Patient thinks malnutrition related. Has an appt with [facility] coming up.
# DVT prophylaxis-SCDs
# Full code
Is planning on being sober for a while. He is aware that his LFTs are slightly elevated and to limit Tylenol intake and also do not use any alcohol. He was given a prescription for repeat labs in 4 days. He does not have a PCP he is going to find
a PCP. Will have him follow-up with the [facility] in the meantime which he is agreeable to. He will call for appointment. I have also sent a message for GI help desk rep group texting messages to get patient an appointment with GI as well.
He is aware that if he has jaundice, dark urine, nausea vomiting or not feeling well being confused that he needs to come back to the ER.
Stressed the importance of alcohol abstinence which he seems to be agreeable to now
He will also need psychiatric follow-up as outpatient
More than 30 minutes spent in discharge including
Final examination of the patient
Summarizing hospital stay
Instructions for continuing care to all relevant caregivers
Preparation of discharge records, prescriptions, and referral forms
Part of this note was created using voice recognition system. Occasional wrong word or��sound alike� substitutions may have inadvertently occurred due to the inherent limitations of voice recognition software. If noted kindly bring it to my
attention for correction.
Anticipated Discharge: Today
Subjective/Interval History
-
Date of Service: March 16, 2025
Objective Data
-
Labs:
Laboratory Results
03/16/25
08:02
Sodium 134 L
Potassium 3.9
Chloride 98
Carbon Dioxide 26
BUN 10
Creatinine 0.6 L
Glucose 91
Calcium 9.5
Total Bilirubin 0.7
AST 375 H
ALT 390 H
Alkaline Phosphatase 67
Vital Signs:
Vital Signs
Temp Pulse Resp BP Pulse Ox
99.0 F 84 16 133/90 99
03/16/25 07:05 03/16/25 07:05 03/16/25 07:05 03/16/25 07:05 03/16/25 07:05
I&O
03/15/25 03/16/25 03/17/25
06:59 06:59 06:59
Intake Total 640 / 640 760 / 760
Balance 640 / 640 760 / 760
--- NOTE | 2025-03-16 14:49 | W.DS.TRANS ---
Addendum entered and electronically signed by Holland Gordon MD 03/16/25 15:01:
Dictation- [id number]
Original Note:
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
-
Discharge Instructions:
Discharge Diagnosis/Procedures Seizures
Alcohol abuse/withdrawal seizures just because
of his
Hyponatremia
Yeah mild pancytopenia
Transaminitis
Fatty liver
Hypomagnesemia and hypophosphatemia
Anxiety
Htay neuropathy
Diet As tolerated
Activity As tolerated
Driving Restrictions No driving
Blood Work Liver function tests on 01/17/2025
Instructions:
Stand-Alone Forms:
Changes to Home Medications: Yes
Discharge Medications:
DC Medications w/original date entered in [employer]
magnesium oxide 200 mg PO DAILY Supplement #10 tabs 01/07/25
multivitamin 1 tab PO DAILY Supplement 03/11/25
cholecalciferol (vitamin D3) 50 mcg (2,000 unit) tablet 50 mcg PO DAILY Supplement #30 tabs 03/16/25
folic acid 1 mg tablet 1 mg PO DAILY Supplement #30 tabs 03/16/25
gabapentin 300 mg capsule 300 mg PO HS Mental Health/Anxiety #300 caps 03/16/25
thiamine mononitrate (vit B1) 100 mg tablet 100 mg PO BID Supplement #30 tabs 03/16/25
Home Medication Changes
new
gabapentin 300 mg capsule 300 mg PO HS Mental Health/Anxiety #300 caps 03/16/25
Pending Results: No
[2025-03-16 15:02] VITALS: BP 118/77
== END 2025-03-16 15:51 | disposition home or self-care (01) | DRG 897 ==
LOC: 4 WEST ACU 23:07
PROVIDERS: Nurse Practitioner Family; Physician Assistant Medical; ADMITTING PHYSICIAN Hospitalist; ATTENDING PHYSICIAN Hospitalist; CONSULT PHYSICIAN Psychiatry & Neurology Psychiatry; CONSULT PHYSICIAN Student in an Organized Health Care Education/Training Program; EMERGENCY PHYSICIAN Emergency Medicine
DX: F10.239 Alcohol dependence with withdrawal, unspecified (principal); E87.1 Hypo-osmolality and hyponatremia; E46 Unspecified protein-calorie malnutrition; D61.818 Other pancytopenia; R56.9 Unspecified convulsions; F41.9 Anxiety disorder, unspecified; S00.532A Contusion of oral cavity, initial encounter; X58.XXXA Exposure to other specified factors, initial encounter; E83.42 Hypomagnesemia; H46.2 Nutritional optic neuropathy; F34.1 Dysthymic disorder; E83.39 Other disorders of phosphorus metabolism; K76.0 Fatty (change of) liver, not elsewhere classified
CPT/HCPCS: 70553; 76700; 80048; 80053; 80306; 80307; 81003; 81015; 82010; 82077; 82550; 82607; 82728; 82977; 83540; 83550; 83735; 83930; 83935; 84100; 84300; 84443; 85025; 85027; 85610; 85730; 86706; 86708; 86709; 86803; 87340; 87811; 93005; 93975; 95816; 96361; 96365; 96375; 99291; A9575